=== PATIENT | male | born 1940 | race Caucasian/White ===

== ENCOUNTER → 2017-10-13 09:10 | Outpatient (CLI) | payer MEDICARE, OTHER, SELFPAY ==
[2017-10-13 10:23] LABS: AST(SGOT) 18 U/L (15-37); Alanine Aminotransfer ALT/SGPT 29 U/L (16-61); Albumin, Serum 3.5 g/dL (3.2-5.0); Alkaline Phosphatase 94 U/L (45-117); Bilirubin, Direct 0.16 mg/dL (0.00-0.30); Cholesterol 116 mg/dL (200); Globulin 3.5 g/dL (2.2-4.2); High Density Lipoprotein 44 mg/dL; Triglycerides 90 mg/dL; Very Low Density Lipoprotein 18 mg/dL (5-40)
== END ==
PROVIDERS: Family Provider Family Medicine; PCP Family Medicine; Visit Provider Internal Medicine Cardiovascular Disease
DX: I25.10 Atherosclerotic heart disease of native coronary artery without angina pectoris (principal); E66.9 Obesity, unspecified; E78.5 Hyperlipidemia, unspecified; Z95.5 Presence of coronary angioplasty implant and graft; I10 Essential (primary) hypertension
CPT/HCPCS: 36415; 80061; 80076

== ENCOUNTER → 2017-11-03 13:02 | Outpatient (CLI) | payer MEDICARE, OTHER, SELFPAY ==
--- NOTE | 2017-11-03 13:03 | ECHOCS_ITS ---
Reason For Study: CAD/ASHD Procedure This was a 2D Doppler, Color Flow transthoracic echocardiogram. The study was technically difficult. The study was technically limited. Due to body habitus. Contrast injection was performed. Exam performed in department. Left Ventricle Normal size and thickness. The estimated ejection fraction is 55 %. Septal motion consistent with IVCD. Stage 1 diastolic dysfunction. Right Ventricle Normal size and thickness. Normal systolic function. Atria The left atrium is severely enlarged. Mitral Valve The mitral valve is structurally normal. No prolapse or stenosis seen. Tricuspid Valve Normal tricuspid valve. Trivial tricuspid valve insufficiency. Right ventricular systolic pressure estimated to be 33 mmHg. Aortic Valve Trisinus/trileaflet aortic valve. Normal aortic valve. Pulmonic Valve Normal pulmonic valve. Great Vessels Normal aortic root. Normal arch. Normal inferior vena cava. Inferior vena cava collapse with sniff. Pericardium/Pleural No pericardial effusion. Medication 22 gauge I.V. with prn adaptor inserted into right arm. Diluted definity 4.0ml given slow IV push to enhance endocardial definition. MMode/2D Measurements & Calculations LVIDd: 5.5 cm IVSd: 1.0 cm Ao root diam: 3.7 cm LVIDs: 3.9 cm LVPWd: 1.3 cm LA dimension: 4.3 cm FS: 29.4 % LAV(MOD-bp): 116.4 ml LA A4 area: 31.5 cm2 LAV(MOD-bp) Indexed: 50.4 ml/m2 LAV(MOD-sp2): 110.4 ml LAV(MOD-sp4): 123.7 ml Doppler Measurements & Calculations MV E max negrito: 55.8 cm/sec Lat Peak E' Negrito: 8.1 cm/sec Med Peak E' Negrito: 6.2 cm/sec MV A max negrito: 76.9 cm/sec E/E' lat: 6.9 E/E' med: 9.0 MV E/A: 0.73 Ao V2 max: 116.1 cm/sec LV V1 max: 87.9 cm/sec PA V2 max: 102.5 cm/sec Ao max P.5 mmHg LV V1 max P.1 mmHg TR max negrito: 262.1 cm/sec TR max P.5 mmHg Interpretation Summary The estimated ejection fraction is 55 %. The left atrium is severely enlarged. Stage 1 diastolic dysfunction. Right ventricular systolic pressure estimated to be 33 mmHg. The study was technically difficult. There is no comparison study available. Contrast injection was performed. Ordering Physician: Tommy Houser Referring Physician: Tommy Houser Performed By: Minnie Finley RDCS, RVT
== END ==
PROVIDERS: Family Provider Family Medicine; PCP Family Medicine; Visit Provider Internal Medicine Cardiovascular Disease
DX: I44.7 Left bundle-branch block, unspecified (principal)
CPT/HCPCS: 93306; Q9957; A4216; C8929

== ENCOUNTER → 2017-11-10 12:29 | Outpatient (CLI) | payer MEDICARE, OTHER, SELFPAY ==
--- NOTE | 2017-11-10 12:30 | STEWCON_ITS ---
Reason For Study: CAD Stress Results Protocol: Momo Protocol Maximum Predicted HR: 145 bpm Target HR: 123 bpm% Max imum Predicted HR: 81 % DurationHeart Rate Stage (mm:ss) (bpm) BPCom ment Baseline 57 128/72 Definity 5 ML Given Diluted; No Chest Pain Momo Protocol Stage I 3:00 10 9 142/70No Chest Pain; Mild to Moderate Dyspnea Momo Protocol Stage II 1:00 11 7 154/68No Chest Pain; Moderate Dyspnea Recovery 62 126/68 Stress Duration: 4:00 mm:ss Maximum Stress HR: 117 bpmM ETS: 1 Baseline Echocardiogram Findings The estimated ejection fraction is 55 %. Stress Echo Wall motion Data Resting WMIntermediate WMStress WM Resting Wall Motion Wall Motion Stress Septal IVCD abnormality. Posterior-Basal: Mildly hypokinetic. Infero-Basal: Mildly hypokinetic. Interpretation Summary The study was technically difficult. Contrast injection was performed. The estimated ejection fraction is 55 %. Posterior-Basal: Mildly hypokinetic Infero-Basal: Mildly hypokinetic Abnormal, submaximal treadmill echocardiogram. Positive for ischemia by echocardiographic criteria. Patient appeared to develop inferior basal and posterior basal hypokinesis at peak exercise although imaging acquisition was somewhat hampered by poor echo windows requiring Definity agent. Poor exercise capacity for age. Appropriate blood pressure response to exercise. Rare PVCs noted. EKG not interpretable due to baseline left bundle branch block. Test was terminated due to dyspnea. No complications. Ordering Physician: Tommy Houser Referring Physician: Tommy Houser Performed By: Óscar Quan RCS
== END ==
PROVIDERS: Family Provider Family Medicine; PCP Family Medicine; Visit Provider Internal Medicine Cardiovascular Disease
DX: I25.10 Atherosclerotic heart disease of native coronary artery without angina pectoris (principal); E78.5 Hyperlipidemia, unspecified
CPT/HCPCS: 93017; 93350; Q9957; A4216; C8928

== ENCOUNTER → 2017-11-15 11:46 | Outpatient (CLI) | payer MEDICARE, OTHER, SELFPAY ==
--- NOTE | 2017-11-15 11:50 | RAD_ITS ---
STUDY: X-RAY CHEST REASON FOR EXAM: Male, 77 years old. SOB UPON EXERTION. PATIENT IS HAVING A HEART CATH TECHNIQUE: Frontal and lateral views of the chest. COMPARISON: None. FINDINGS: Chronic appearing increased interstitial lung markings. There is no demonstrated pleural abnormality. Enlarged heart size. Normal mediastinum and chen. Normal visualized pulmonary arteries. There is atherosclerotic calcification of the aortic arch with tortuosity. There are diffuse degenerative changes of the visualized thoracic spine. There is degenerative osteoarthritis of the bilateral shoulders. There is no demonstrated abnormality of the visualized soft tissue structures of the upper abdomen. RAD/Chest PA and Lateral IMPRESSION: There are no acute findings. Electronically Signed: Kaleb Guzmán MD at 23:53 EDT , Service support ,
[2017-11-15 13:14] LABS: Hematocrit 43.8 % (40-54); Hemoglobin 14.9 g/dl (13.0-16.5); Mean Corpuscular Hgb 29.7 pg (27.0-32.0); Mean Corpuscular Volume 87.4 fL (80-94); Mean Platelet Vol. 10.7 fl (6.2-12.0); Platelet Count 199 K/mm3 (150-450); RBC Distribution Width CV 13.4 % (11.6-14.6); RBC Distribution Width SD 42.3 fl (35.1-43.9); Red Blood Count 5.01 M/mm3 (4.6-6.2); White Blood Count 6.4 K/mm3 (4.4-11.0)
[2017-11-15 13:15] LABS: Scan Indicated on CBC? Y/N NO
[2017-11-15 13:21] LABS: Prothrombin Time (Protime)PT. 13.2 SECONDS (11.7-14.9)
[2017-11-15 13:22] LABS: Partial Thromboplast Time 29.1 Seconds (24.1-36.2)
[2017-11-15 13:39] LABS: Anion Gap 6 (5-15); BUN 13 mg/dL (7-18); BUN/Creat Ratio 17.4 RATIO (10-20); Calcium,Total 9.2 mg/dL (8.5-10.1); Chloride 103 mmol/L (98-107); Creatinine, Serum 0.75 mg/dL (0.70-1.30); EST Glomerular Filtration Rate 108 mL/min (>60); Est Glom Filt Rate - Afr Amer 131 mL/min (>60); Glucose 106 mg/dL (74-106); Potassium 3.9 mmol/L (3.5-5.1); Sodium Level 141 mmol/L (136-145)
== END ==
PROVIDERS: Family Provider Family Medicine; PCP Family Medicine; Visit Provider Internal Medicine Cardiovascular Disease
DX: I25.10 Atherosclerotic heart disease of native coronary artery without angina pectoris (principal); Z95.5 Presence of coronary angioplasty implant and graft; R94.39 Abnormal result of other cardiovascular function study
CPT/HCPCS: 36415; 71046; 80048; 85027; 85610; 85730

== ENCOUNTER 2017-11-17 06:43 | Day surgery (SDC) | payer MEDICARE, OTHER, SELFPAY ==
[2017-11-16 12:26] VITALS: BMI 37.9
[2017-11-17] VITALS (27 sets, daily range): BP systolic 134–178; BP diastolic 60–81; PULSE 46–56; RESP 11–20; TEMP 36.4–36.8; O2SAT 92–98; BMI 37.8; BMI 37.9
--- NOTE | 2017-11-17 10:16 | EKG12_ITS ---
Test Reason : PCI Blood Pressure : / mmHG Vent. Rate : 048 BPM Atrial Rate : 053 BPM P-R Int : 000 ms QRS Dur : 168 ms QT Int : 494 ms P-R-T Axes : 000 -28 039 degrees QTc Int : 441 ms Sinus bradycardia Left bundle branch block Abnormal ECG Confirmed by MELISSA BANSAL, MAGGI ([id number]), acquisition editor DAYAN BOWEN ([id number]) on 11/24/2017 3:18:34 PM Referred By: Tommy Houser Confirmed By:MAGGI TORRES MD
--- NOTE | 2017-11-17 10:29 | CL.I_ITS ---
Patient Name: NADIA BARBA Study Date: 11/17/2017 Performing: Tommy Houser MD Ht: 68.89 inches 175 cm : 1940 Wt: 257.94 lbs 117 kg Age: 77 Gender: male BSA: 2.3 PROCEDURE(S) PERFORMED EQ69-NKM/COR/LV NK10-MXP W OR WO PTCA, SINGLE CORONARY ARTERY CLINICAL PROFILE AND CO-MORBIDITIES Indications: New Onset Angina <= 2 months, Suspected CAD, Stable Known CAD Heart Failure: None Stress/Imaging Stress Echocardiogram: Yes Result: Positive High Risk Stress Echocardiogram: Posit justin High Risk Angina Classification Anginal Classification w/in 2 Weeks: CCS II CAD Presentations: Unstable angina. 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 Successful PTCA/CHANNING of the mid LAD utilizing multiple balloons, stents and wires, finally utilizing a 2.5 x 16 Promus Synergy, post dilated with a 3.0 x 8 NC balloon. 75%-->20%, initial ruptured NC ball oon prior to stent caused self-limiting dye staining of septal media senior recruiter vs self-contained intra-ramírez cardial perforation, completely resolved after stenting. Pt completely asymptomatic. No residual dy e staining extra cardiac or intra-mural. RECOMMENDATIONS Referred for immediate PCI Management as per referring Hl7 Developer Highly recommend quitting all tobacco products Follow up with primary international marketing intern Risk factor modification ASA Indefinitley Plavix for at least 12 months Routine post interventional care Refer for Outpatient Cardiac Rehab Manual sheath removal per protocol Manual sheath removal. DESCRIPTION OF PROCEDURE The patient arrived to the procedure lab. The risks and benefits of the procedure as well as a full d escription of our services here and lack of surgical backup were fully explained to the patient and/o r their significant other prior to the catheterization. The Timeout was completed, verifying the cary ect patient and procedure. The patient's procedural site was prepped and draped in the usual fashion. Local anesthetic was given subcutaneously to right groin region with Lidocaine 2%. Using a modified Seldinger technique, arterial access was obtained via the right femoral artery, a 4Fr sheath was inse rted. Left Coronary Artery selective angiography was performed in multiple views using a 4 Fr. JL5 c atheter. Right Coronary Artery selective angiography was then performed in multiple views using a 4 F r. 3DRC catheter. Left Ventriculography was performed in MORALES projection using a 4 Fr. Pigtail cathete r. LV to AO pullback pressures were then recordedThe images were reviewed and options discussed. A de cision was then made to proceed with an Intervention, IVUS or other adjunct procedure. Arterial sheath was exchanged for a 6 Fr Sheath. Angiogram performed pre balloon dilatation. ebu 3.75 Guide catheter was inserted and engaged into the LCA. bmw Guide wire was advanced to the LAD. emerge 2.00 x 12 Balloon catheter was advanced across lesion in the LAD, mid. PTCA balloon inflated at 12 a tms for 14 secs. Angiogram performed post balloon dilatation. elunir 3.00 x 17 Drug Eluting stent was advanced across the lesion in the LAD, mid. Drug Eluting stent was removed intact, failed to cross l esion emerge 2.5 x 12 Balloon catheter was advanced across lesion in the LAD, mid. PTCA balloon infla yeimy at 10 atms for 15 secs. PTCA balloon inflated at 12 atms for 23 secs. Angiogram performed post ba lloon dilatation. elunir 3.00 x17 Drug Eluting stent was advanced across the lesion in the LAD, mid. Drug Eluting stent was removed intact, failed to cross lesion synergy 3.00 x 16 Drug Eluting stent wa s advanced across the lesion in the LAD, mid. Drug Eluting stent was removed intact, failed to cross lesion nc emerge 3.00 x 12 Balloon catheter was advanced across lesion in the LAD, mid. PTCA balloon inflated at 10 atms for 11 secs. PTCA balloon inflated at 14 atms for 28 secs. Angiogram performed po st balloon dilatation. synergy 3.00 x 16 Drug Eluting stent was advanced across the lesion in the LAD , mid. Drug Eluting stent was removed intact, failed to cross lesion runthrough Guide wire was insert ed as a ernesto wire elunir 3.00 x 17 Drug Eluting stent was advanced across the lesion in the LAD, mid on runthrough wire Drug Eluting stent was removed intact, failed to cross lesion synergy 3.00 x 16 D rug Eluting stent was advanced across the lesion in the LAD, mid on bmw wire Drug Eluting stent was r emoved intact, failed to cross lesion choice ex support 0.014 x 182 Guide wire was advanced to the LA D. synergy 2.5 x 16 Drug Eluting stent was advanced across the lesion in the LAD, mid. Angiogram perf ormed post stent deployment. nc emerge 3.00 x 8 Balloon catheter was inserted post stent. Angiogram p erformed post balloon dilatation. The arterial sheath was sutured in place and capped CORONARY ANGIOGRAPHY DOMINANCE: Right Dominant LEFT HEART ASSESSMENT Left Ventricular Ejection Fraction: by LV Gram 55 % Normal Left Ventricular systolic function Normal Left Ventricular End Diastolic Pressure Inferior Mid Hypokinesis - Mild LEFT MAIN: Angiographically normal LEFT ANTERIOR DECENDING ARTERY: MID LAD: 75 % Stenosis CIRCUMFLEX ARTERY: Mild luminal irregularities less than 30% RIGHT CORONARY ARTERY: is occluded COLLATERAL FLOW: Collateral flow from Left to Right INTERVENTION INFORMATION LESION SITE: LAD (Mid) Lesion Complexity: High/C, lesion at bifurcation: No, thrombus present: No, lesion length: 16 mm, cul prit lesion: Yes Pre Stenosis: 75 % Pre intervention ROMELIA flow: 3 PROCEDURE: Balloon Angioplasty, Drug Eluting Stent with pre and post dilatation Post Stenosis: 20 % Post intervention ROMELIA flow: 3 Lesion Devices: Malagon .014 BMW Dunlap Straight 190cm Kota Sci EMERGE MR 2.00x12 BALLOON Cardinal Elunir CHANNING RX 3.0x17 Kota Sci EMERGE MR 2.50x12 BALLOON Kota Sci Synergy MR CHANNING 3.00x16 Kota Sci NC EMERGE MR 3.00x12 BALLOON Terumo .014 Runthrough Extra Floppy 180cm straight Kota Sci .014 Choice Xtra Support wire 182cm Kota Sci Synergy MR CHANNING 2.50x16 Kota Sci NC EMERGE MR 3.00x08 BALLOON COMPLICATIONS No Complications PROCEDURE MEDICATIONS Versed 1 mg IV Versed 1 mg IV Oxygen: 2 L/min via nasal cannula Heparin 6000 unit(s) IV 11/17/2017 09:18:14 Heparin 4000 unit(s) IV 11/17/2017 09:41:34 Nitro 200 mcg IC 11/17/2017 09:19:48 SUMMARY OF HEMODYNAMIC DATA Time AIR REST ECG 07:11:59 ECG 07:12:05 ECG 07:12:34 AO 126/66 (89) SA 09:06:51 LV 129/-6, 8 09:13:49 LV 133/-7, 9 09:13:57 LVp 126/-15, 4 09:14:19 AOp 128/56 (82) 09:14:25 Signed By Tommy Houser MD On 11/17/2017 10:28:12 Tommy Houser MD
[2017-11-17 10:58] LABS: Hematocrit 42.6 % (40-54); Hemoglobin 14.2 g/dl (13.0-16.5); Mean Corp Hgb Conc 33.3 g/gl (32-36); Mean Corpuscular Hgb 29.2 pg (27.0-32.0); Mean Corpuscular Volume 87.7 fL (80-94); Mean Platelet Vol. 9.9 fl (6.2-12.0); Platelet Count 177 K/mm3 (150-450); RBC Distribution Width CV 13.5 % (11.6-14.6); RBC Distribution Width SD 43.1 fl (35.1-43.9); Red Blood Count 4.86 M/mm3 (4.6-6.2); White Blood Count 6.8 K/mm3 (4.4-11.0)
[2017-11-17 10:59] LABS: Scan Indicated on CBC? Y/N NO
[2017-11-17] MEDS: 0.9% Normal Saline 1,000 ML 150 ML IV (11:07)
[2017-11-17] MEDS: 0.9% NaCl Peripheral Flush Adult/Peds IV ×2 (11:07→22:09)
[2017-11-17 11:14] LABS: CPK Total, Creatine Kinase 76 U/L (39-308)
[2017-11-17 11:21] LABS: ACT Activated Clotting Time 224 sec (74-137)
[2017-11-17 12:15] LABS: ACT Activated Clotting Time 158 sec (74-137)
--- NOTE | 2017-11-17 14:23 | CRPHASE1 ---
Patient Data/Charges Former Patient:: Phase I [employer] Art[employer] Crewmember:: Tommy Houser Admit Date:: 11/17/17 Phase I Charge:: Level I - Education Risk Factors/Lifestyle Smoking Status: Never smoker Hx Hypertension: Yes Hx Diabetes Mellitus Type 2: Yes - BORDERLINE WATCHES DIET Hx Dyslipidemia: Yes Hx Obesity: Yes Height: 1.75 m Weight:: 116.573 kg BMI: 37.9 Stress: Home/Family ETOH: No Caffeine: No Substance Abuse: No Family History: Family History (Last Reviewed 11/15/17 @ 11:10 by Dee Dee Pratt) Father CAD (coronary artery disease) Past Cardiac Illness: Coronary Artery Disease Phase I Education Given On:: [place], Nutrition, Antiplatelet medication Issues Affecting Care:: None Knowledge of Condition:: Yes Learning Preferences: Verbal Hospital Course Cardiac Cath Date:: 11/17/17 Medical/Surgical History [place]:: No Angina:: No Diabetes Type II:: Yes - BORDERLINE Hypertension:: Yes - ON MEDS Dyslipidemia:: Yes - ON MEDS Arthritis:: Yes - HAD 2 KNEE SUSRGERIES 3 YRS AGO GI:: No GERD:: No Cancer:: No Renal:: No Thyroid:: No Depression:: No Anxiety:: No Orthopedic:: Yes - 3 YRS AGO Discharge/Home/Social Eval Discharge Disposition: Home Marital Status: Patient Lives With::
--- NOTE | 2017-11-17 14:27 | CRPHASE1_ITS ---
Patient Data/Charges Former Patient:: Phase I Senior Grants Officer:: Tommy Houser Admit Date:: 11/17/17 Phase I Charge:: Level I - Education Risk Factors/Lifestyle Smoking Status: Never smoker Hx Hypertension: Yes Hx Diabetes Mellitus Type 2: Yes - BORDERLINE WATCHES DIET Hx Dyslipidemia: Yes Hx Obesity: Yes Height: 1.75 m Weight:: 116.573 kg BMI: 37.9 Stress: Home/Family ETOH: No Caffeine: No Substance Abuse: No Family History: Family History (Last Reviewed 11/15/17 @ 11:10 by Dee Dee Pratt) Father CAD (coronary artery disease) Past Cardiac Illness: Coronary Artery Disease Phase I Education Given On:: [place], Nutrition, Antiplatelet medication Issues Affecting Care:: None Knowledge of Condition:: Yes Learning Preferences: Verbal Hospital Course Cardiac Cath Date:: 11/17/17 Medical/Surgical History [place]:: No Angina:: No Diabetes Type II:: Yes - BORDERLINE Hypertension:: Yes - ON MEDS Dyslipidemia:: Yes - ON MEDS Arthritis:: Yes - HAD 2 KNEE SUSRGERIES 3 YRS AGO GI:: No GERD:: No Cancer:: No Renal:: No Thyroid:: No Depression:: No Anxiety:: No Orthopedic:: Yes - 3 YRS AGO Discharge/Home/Social Eval Discharge Disposition: Home Marital Status: Patient Lives With::
--- NOTE | 2017-11-17 14:29 | CRPH1.INST_ITS ---
General Education CAD and cardiac anatomy and function:: Patient communicates acknowledgment Explanation of diagnoses and procedures:: Patient communicates acknowledgment Sign/Symptoms of OK:: Patient communicates acknowledgment Antiplatelet therapy: Patient communicates acknowledgment Proper use of NTG-SL: Patient communicates acknowledgment Emergency procedures and activation of EMS: Patient communicates acknowledgment Compliance of all prescribed medications: Patient communicates acknowledgment Smoking Patient Nicotine/Smoking Risk Factors Are:: Never smoked Dyslipidemia Recommendations Include:: Lipid profile not available Dyslipidemia Response Code:: Patient communicates acknowledgment Overweight/Obesity Patient Overweight/Obesity Risk Factors Are:: Overweight = 26-29 Recommendations Include:: Weight loss of 5-10%, Reduced calorie diet Overweight/Obesity:: Patient communicates acknowledgment Hypertension Recommendations Include:: Maintain BP <130/85, BP <130/80 if diabetic Hypertension:: Patient communicates acknowledgment Heart Disease Patient Heart Disease Risk Factors Are:: Family history of heart disease < 65 years old, Previous cardiac event Heart Disease Response Code:: Patient communicates acknowledgment Diabetes Patient Diabetes Risk Factors Are:: No documented hx of diabetes Recommendations Include:: Maintain fasting blood sugars 70-110 md/dL Diabetes:: Patient communicates acknowledgment - BORDERLINE Metabolic Syndrome Patient Metabolic Syndrome Risk Factors Are [3 of 5]:: Fasting blood sugar > 100 mg/dL, Waist circumference > 35 [female] or 40 [male], High triglyceride > 150, Hypertension, Low HDL <40 [male] or < 50 [female] Metabolic Syndrome Response Code:: Patient communicates acknowledgment Sedentary Recommendations Include:: Discussed home walking program Sedentary Response Code:: Patient communicates acknowledgment Stress Stress Response Code:: Patient communicates acknowledgment - REQUIRES HELP AT HOME
[2017-11-17] MEDS: Tamsulosin HCl 0.4 MG Capsule PO (16:48)
[2017-11-17 16:55] LABS: Hematocrit 42.6 % (40-54); Hemoglobin 14.4 g/dl (13.0-16.5); Mean Corp Hgb Conc 33.8 g/gl (32-36); Mean Corpuscular Hgb 29.4 pg (27.0-32.0); Mean Corpuscular Volume 86.9 fL (80-94); Mean Platelet Vol. 10.2 fl (6.2-12.0); Platelet Count 176 K/mm3 (150-450); RBC Distribution Width CV 13.4 % (11.6-14.6); RBC Distribution Width SD 42.3 fl (35.1-43.9); White Blood Count 8.5 K/mm3 (4.4-11.0)
[2017-11-17 16:56] LABS: Scan Indicated on CBC? Y/N NO
[2017-11-17 17:08] LABS: CPK Total, Creatine Kinase 58 U/L (39-308)
--- NOTE | 2017-11-17 19:40 | NURSING ---
Up to chair after bedrest complete. Pt. very stiff but did fair moving to the chair with 1 assist. Right groin site remains soft.
[2017-11-17] MEDS: Metoprolol(XL)Succ 25 MG Tablet PO (21:58)
[2017-11-17] MEDS: Isosorbide DN 20 MG Tablet PO (21:59)
[2017-11-17] MEDS: Atorvastatin Calcium 80 MG Tablet PO (21:59)
[2017-11-17 22:34] LABS: Hematocrit 41.6 % (40-54); Hemoglobin 13.7 g/dl (13.0-16.5); Mean Corp Hgb Conc 32.9 g/gl (32-36); Mean Corpuscular Hgb 28.5 pg (27.0-32.0); Mean Corpuscular Volume 86.7 fL (80-94); Platelet Count 166 K/mm3 (150-450); RBC Distribution Width CV 13.4 % (11.6-14.6); RBC Distribution Width SD 42.6 fl (35.1-43.9); Scan Indicated on CBC? Y/N NO; White Blood Count 8.2 K/mm3 (4.4-11.0)
[2017-11-17 23:01] LABS: CPK Total, Creatine Kinase 55 U/L (39-308)
[2017-11-18] VITALS (14 sets, daily range): BP systolic 121–175; BP diastolic 50–71; PULSE 49–60; RESP 12–20; TEMP 36.9–37.1; O2SAT 92–97
[2017-11-18 04:21] LABS: Hematocrit 40.3 % (40-54); Hemoglobin 13.6 g/dl (13.0-16.5); Mean Corp Hgb Conc 33.7 g/gl (32-36); Mean Corpuscular Hgb 29.5 pg (27.0-32.0); Mean Corpuscular Volume 87.4 fL (80-94); Mean Platelet Vol. 9.8 fl (6.2-12.0); Platelet Count 190 K/mm3 (150-450); RBC Distribution Width CV 13.4 % (11.6-14.6); RBC Distribution Width SD 41.9 fl (35.1-43.9); Red Blood Count 4.61 M/mm3 (4.6-6.2)
[2017-11-18 04:24] LABS: Scan Indicated on CBC? Y/N NO
[2017-11-18 04:39] LABS: Anion Gap 9 (5-15); BUN 15 mg/dL (7-18); BUN/Creat Ratio 21.2 RATIO (10-20); Calcium,Total 8.3 mg/dL (8.5-10.1); Chloride 107 mmol/L (98-107); Cholesterol 113 mg/dL (200); Creatinine, Serum 0.71 mg/dL (0.70-1.30); EST Glomerular Filtration Rate 116 mL/min (>60); Est Glom Filt Rate - Afr Amer 140 mL/min (>60); Estimated Creatinine Clearance 63.83 ml/min; Glucose 106 mg/dL (74-106); High Density Lipoprotein 37 mg/dL; Potassium 3.7 mmol/L (3.5-5.1); Sodium Level 144 mmol/L (136-145); Triglycerides 121 mg/dL; Very Low Density Lipoprotein 24 mg/dL (5-40)
--- NOTE | 2017-11-18 05:55 | EKG12_ITS ---
Test Reason : AM Blood Pressure : / mmHG Vent. Rate : 055 BPM Atrial Rate : 055 BPM P-R Int : 268 ms QRS Dur : 158 ms QT Int : 472 ms P-R-T Axes : 035 -20 050 degrees QTc Int : 451 ms Sinus bradycardia with 1st degree A-V block Left bundle branch block Abnormal ECG Confirmed by MELISSA BANSAL, MAGGI ([id number]), television news video editor DAYAN BOWEN ([id number]) on 11/24/2017 3:18:05 PM Referred By: Tommy Houser Confirmed By:MAGGI TORRES MD
--- NOTE | 2017-11-18 07:55 | PCM.DC.CCA ---
Discharge Diet: Low fat/ Low Cholesterol Discharge Activity: - - Don not lift anything greater than 10 lbs for 3 days May shower in (days): 1 May resume sexual activity in: 1 week - if no groin problems occur. Lifting Restrictions: 10 pounds and also avoid any pushing or pulling for 3 days after your test. Call your doctor if your incision/area has: Continuous Slow Oozing, Sudden Increased Bleeding, Increased Pain/ Swelling, Increased Redness, Foul Smelling Discharge, Swelling at the incision site Call your doctor if you observe: Fever of 101 or Higher, Shortness of breath, Chest pain Change Dressing in (Days):: 1 Remove Dressing in (days):: 1 Cleanse incision/area with: Soap & Water Additional Dressing/Incision Instructions:: Keep the dressing (bandage) on until the next morning. You may then shower, but do not take a tub bath for 5 days after your test. It is normal to have some tenderness and discomfort at the puncture site. Sometimes bruising also occurs. However, if pain, numbness, or coldness occurs below the puncture site (in your leg, toes, arms or fingers) call your doctor at once. You may have a small, marble sized knot at the puncture site. This is normal. Do not rub it. It will go away in 4-6 weeks. Bleeding can occur from the area where the puncture was done. Blood may spurt or drip from the site. If blood spurts, apply pressure right away to stop bleeding and call 911. Although rare, bleeding into the tissue (hematoma) can also occur. If this happens, a large, firm area goose egg under the skin will appear. If any of these occur, lie down as flat as you can and have someone apply firm pressure to the cath site with a gauze pad or a clean washcloth for 10-15 minutes. Call 911 or go to the Emergency Department. Additional Instructions: You may start cardiac rehab after we see you in the office. You can not stop you Plavix for at least one year. You will be on ASA for life long use. Allergies/Adverse Reactions: Allergies clindamycin Allergy (Verified 11/15/17 11:10) swelling Penicillins Allergy (Verified 11/15/17 11:10) Rash THROAT SWELLS lisinopril Adverse Reaction (Verified 11/15/17 11:10) Nausea Medications to take at Discharge Ascorbic Acid [Vitamin C] 500 mg PO DAILY@0800 11/01/13 Finasteride [Proscar] 5 mg PO DAILY 11/01/13 Multivitamins,Therapeutic [Multivitamin] 1 tab PO DAILY 11/01/13 cyclobenzaprine 10 mg tablet 10 mg PO Q8H PRN 10/11/17 fluticasone 50 mcg/actuation nasal spray,suspension 1 spray INTRANASAL QDAY 10/11/17 tamsulosin 0.4 mg capsule 0.4 mg PO QDAY 10/11/17 atorvastatin 80 mg tablet 80 mg PO QHS #90 tab 10/12/17 diltiazem ER 240 mg capsule,24 hr,extended release 240 mg PO DAILY #90 cap 10/12/17 hydrochlorothiazide 25 mg tablet 25 mg PO DAILY #90 tab 10/12/17 isosorbide dinitrate 20 mg tablet 20 mg PO BID #180 tab 10/12/17 losartan 100 mg tablet 100 mg PO DAILY #90 tab 10/12/17 metoprolol succinate ER 25 mg tablet,extended release 24 hr 25 mg PO BID #180 tab 10/12/17 nitroglycerin 0.4 mg sublingual tablet 0.4 mg SUBLINGUAL Q5-15M PRN #25 tab 10/12/17 aspirin 81 mg tablet,delayed release 81 mg PO QDAY #30 tab 11/11/17 clopidogrel 75 mg tablet 75 mg PO QDAY #30 tab 11/11/17 Primary Care Physician: Sen Orr MD [Primary Care Provider] - Please Follow Up With: Tommy Houser MD When: 12/02 at 2:30pm Cardiac Rehabilitation Info Cardiac Rehabilitation Program Information: Cardiac Rehabilitation is important for patients like you who are recovering from a heart problem. Cardiac rehabilitation programs are recognized as integral to the continued care of the patient with coronary heart disease. The cardiac rehabilitation program is designed to optimize a patient's physical, psychological, and social functioning. Health patient care specialist work in cardiac rehabilitation programs and assist you with getting the treatments you need to get stronger and healthier - like exercise, healthy eating habits, and medications. Cardiac rehabilitation has been show to help people with heart problems live longer and have better life enjoyment than people who do not go to cardiac rehabilitation. Please contact the Cardiac Rehabilitation Program at [facility] at in two weeks if you have not heard from them.
--- NOTE | 2017-11-18 08:03 | DCINST_ITS ---
Discharge Diet: Low fat/ Low Cholesterol Discharge Activity: - - Don not lift anything greater than 10 lbs for 3 days May shower in (days): 1 May resume sexual activity in: 1 week - if no groin problems occur. Lifting Restrictions: 10 pounds and also avoid any pushing or pulling for 3 days after your test. Call your doctor if your incision/area has: Continuous Slow Oozing, Sudden Increased Bleeding, Increased Pain/ Swelling, Increased Redness, Foul Smelling Discharge, Swelling at the incision site Call your doctor if you observe: Fever of 101 or Higher, Shortness of breath, Chest pain Change Dressing in (Days):: 1 Remove Dressing in (days):: 1 Cleanse incision/area with: Soap & Water Additional Dressing/Incision Instructions:: Keep the dressing (bandage) on until the next morning. You may then shower, but do not take a tub bath for 5 days after your test. It is normal to have some tenderness and discomfort at the puncture site. Sometimes bruising also occurs. However, if pain, numbness, or coldness occurs below the puncture site (in your leg, toes, arms or fingers) call your doctor at once. You may have a small, marble sized knot at the puncture site. This is normal. Do not rub it. It will go away in 4-6 weeks. Bleeding can occur from the area where the puncture was done. Blood may spurt or drip from the site. If blood spurts, apply pressure right away to stop bleeding and call 911. Although rare, bleeding into the tissue (hematoma) can also occur. If this happens, a large, firm area goose egg under the skin will appear. If any of these occur, lie down as flat as you can and have someone apply firm pressure to the cath site with a gauze pad or a clean washcloth for 10-15 minutes. Call 911 or go to the Emergency Department. Additional Instructions: You may start cardiac rehab after we see you in the office. You can not stop you Plavix for at least one year. You will be on ASA for life long use. Allergies/Adverse Reactions: Allergies clindamycin Allergy (Verified 11/15/17 11:10) swelling Penicillins Allergy (Verified 11/15/17 11:10) Rash THROAT SWELLS lisinopril Adverse Reaction (Verified 11/15/17 11:10) Nausea Medications to take at Discharge Ascorbic Acid [Vitamin C] 500 mg PO DAILY@0800 11/01/13 Finasteride [Proscar] 5 mg PO DAILY 11/01/13 Multivitamins,Therapeutic [Multivitamin] 1 tab PO DAILY 11/01/13 cyclobenzaprine 10 mg tablet 10 mg PO Q8H PRN 10/11/17 fluticasone 50 mcg/actuation nasal spray,suspension 1 spray INTRANASAL QDAY tamsulosin 0.4 mg capsule 0.4 mg PO QDAY 10/11/17 atorvastatin 80 mg tablet 80 mg PO QHS #90 tab 10/12/17 diltiazem ER 240 mg capsule,24 hr,extended release 240 mg PO DAILY #90 cap 10/12 hydrochlorothiazide 25 mg tablet 25 mg PO DAILY #90 tab 10/12/17 isosorbide dinitrate 20 mg tablet 20 mg PO BID #180 tab 10/12/17 losartan 100 mg tablet 100 mg PO DAILY #90 tab 10/12/17 metoprolol succinate ER 25 mg tablet,extended release 24 hr 25 mg PO BID #180 tab 10/12/17 nitroglycerin 0.4 mg sublingual tablet 0.4 mg SUBLINGUAL Q5-15M PRN #25 tab aspirin 81 mg tablet,delayed release 81 mg PO QDAY #30 tab 11/11/17 clopidogrel 75 mg tablet 75 mg PO QDAY #30 tab 11/11/17 Primary Care Physician: Sen Orr MD [Primary Care Provider] - Please Follow Up With: Tommy Houser MD When: 12/02 at 2:30pm Cardiac Rehabilitation Info Cardiac Rehabilitation Program Information: Cardiac Rehabilitation is important for patients like you who are recovering from a heart problem. Cardiac rehabilitation programs are recognized as integral to the continued care of the patient with coronary heart disease. The cardiac rehabilitation program is designed to optimize a patient's physical, psychological, and social functioning. Health healthcare sales representative work in cardiac rehabilitation programs and assist you with getting the treatments you need to get stronger and healthier - like exercise, healthy eating habits, and medications. Cardiac rehabilitation has been show to help people with heart problems live longer and have better life enjoyment than people who do not go to cardiac rehabilitation. Please contact the Cardiac Rehabilitation Program at [facility] at in two weeks if you have not heard from them.
[2017-11-18] MEDS: Metoprolol(XL)Succ 25 MG Tablet PO (08:06)
[2017-11-18] MEDS: Isosorbide DN 20 MG Tablet PO (08:06)
[2017-11-18] MEDS: Multivitamins,Therapeutic Tablet 1 TABLET PO (08:06)
[2017-11-18] MEDS: Ascorbic Acid 500 MG Tablet PO (08:07)
[2017-11-18] MEDS: hydroCHLOROthiazide 25 MG Tablet PO (08:07)
[2017-11-18] MEDS: Losartan Potassium 100 MG Tablet PO (08:08)
--- NOTE | 2017-11-18 09:15 | PN.CARD_ITS ---
Subjectve: Patient doing very well overnight, no chest pain, angina, shortness of breath or dyspnea. Right groin is clean/dry/intact. CKs are negative. Hemoglobin and creatinine are within nominal limits. EKG shows normal sinus rhythm, no acute changes. Objective: Vital Signs Temp Pulse Resp BP Pulse Ox 98.5 F 60 17 175/70 H 97 11/18/17 04:00 11/18/17 08:06 11/18/17 08:00 11/18/17 08:06 11/18/17 08:00 Oxygen Delivery Method Room Air Weight: 230 lb 13.184 oz Body Mass Index (BMI) 37.8 Intake and Output for Last 24 Hours 11/16/17 11/17/17 11/18/17 23:59 23:59 23:59 Intake Total 2080 / 2080 100 / 100 Output Total 1450 / 1450 200 / 200 Balance 630 / 630 -100 / -100 General: Awake, Alert, Oriented x 3 HEENT: PERRL, EOMI, Sclera Non Icteric Neck: Supple, Good ROM, No Lymph Node Enlargement Lungs: Clear to auscultation Cardiovascular: Regular Rhythm, Normal S1, Normal S2, No Murmurs, No Rubs, No Gallops Vascular: No Carotid Bruits, Normal Femoral Pulses, Normal Radial Pulses, Normal Dorsalis Pedal Pulse, Normal Posterior Tibial Pulses Abdomen: Bowel Sounds Present, Soft, Non Tender, No HSM, No Organomegaly Extremities: No Cyanosis, No Clubbing, No edema Neurological: No Focal Motor or Sensory Deficit 11/17/17 10:40: WBC 6.8, RBC 4.86, Hgb 14.2, Hct 42.6, MCV 87.7, MCH 29.2, MCHC 33.3, RDW 13.5, RDW Differential 43.1, Plt Count 177, MPV 9.9 11/17/17 16:35: WBC 8.5, RBC 4.90, Hgb 14.4, Hct 42.6, MCV 86.9, MCH 29.4, MCHC 33.8, RDW 13.4, RDW Differential 42.3, Plt Count 176, MPV 10.2 11/17/17 22:15: WBC 8.2, RBC 4.80, Hgb 13.7, Hct 41.6, MCV 86.7, MCH 28.5, MCHC 32.9, RDW 13.4, RDW Differential 42.6, Plt Count 166, MPV 10.0 11/18/17 04:15: Sodium 144, Potassium 3.7, Chloride 107, Carbon Dioxide 28.0, Anion Gap 9, BUN 15, Creatinine 0.71, Est GFR (MDRD) Af Amer 140, Est GFR (MDRD ) Non-Af 116, BUN/Creatinine Ratio 21.2 H, Glucose 106, Calcium 8.3 L, Triglycerides 121, Cholesterol 113, LDL Cholesterol 52, VLDL Cholesterol 24, HDL Cholesterol 37 L 11/18/17 04:15: WBC 9.0, RBC 4.61, Hgb 13.6, Hct 40.3, MCV 87.4, MCH 29.5, MCHC 33.7, RDW 13.4, RDW Differential 41.9, Plt Count 190, MPV 9.8 Rhythm: EKG: ECHO: Stress Test: Cardiac Cath: PCI: CT Surgery: Holter monitor: EPS: PPM: CXR: Chest CT Scan: Medical Necessity - Tobacco Use Smoking Status: Never smoker Assessment/Plan 1. Coronary artery disease: Patient has had no chest pain symptoms overnight. CKs are negative. EKG is unchanged. Telemetry showed normal sinus rhythm, no PVCs. Hemoglobin and creatinine are within nominal limits. At this point I would recommend continuing baby aspirin and Plavix for life given the patient's calcified mid LAD stenosis requiring drug-eluting stent. 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 In addition we will restart his antihypertensive medications today, and adjust them upwards to maintain and optimize blood pressure. He will return in 2 weeks time to our office for a groin check and blood pressure check. He will then be enrolled in cardiac rehab at which time we can adjust his antihypertensive medications as well. 2. Hyperlipidemia: Continue statin based medication. 3. Discharge home today. Follow-up with Dr. Houser. Code Visit Inpatient E&M: 45321 Subs Hosp L2
[2017-11-18] MEDS: Aspirin E.C. 81 MG Tablet PO (09:31)
[2017-11-18] MEDS: Tamsulosin HCl 0.4 MG Capsule PO (09:31)
[2017-11-18] MEDS: dilTIAZem CD 240 MG Capsule PO (09:32)
[2017-11-18] MEDS: Finasteride 5 MG Tablet PO (09:32)
[2017-11-18] MEDS: Clopidogrel Bisulfate 75 MG Tablet PO (09:32)
== END 2017-11-18 11:00 | disposition home or self-care (01) ==
LOC: CLSP 06:44 → ICU 09:57
PROVIDERS: Family Provider Family Medicine; PCP Family Medicine; Visit Provider Internal Medicine Cardiovascular Disease
DX: I25.10 Atherosclerotic heart disease of native coronary artery without angina pectoris (principal); R94.39 Abnormal result of other cardiovascular function study; E78.00 Pure hypercholesterolemia, unspecified; I10 Essential (primary) hypertension; I44.7 Left bundle-branch block, unspecified; E66.9 Obesity, unspecified; Z68.37 Body mass index [BMI] 37.0-37.9, adult; N40.0 Benign prostatic hyperplasia without lower urinary tract symptoms; M54.16 Radiculopathy, lumbar region; G47.30 Sleep apnea, unspecified; E11.9 Type 2 diabetes mellitus without complications; Z98.61 Coronary angioplasty status; Z96.653 Presence of artificial knee joint, bilateral; Z79.82 Long term (current) use of aspirin; Z79.899 Other long term (current) drug therapy
CPT/HCPCS: 80048; 80061; 82550; 85027; 85347; 92928; 93005; 93458; 99152; 99153; J7030; J7040; Q9967; A4216; C1725; C1769; C1874; C1887; C1894; C9600

== ENCOUNTER → 2019-01-30 | Outpatient (CLI) | payer MEDICARE, OTHER, SELFPAY ==
[2018-07-22 10:28] VITALS: BMI 37.9
[2019-01-19 13:13] VITALS: BMI 37.5
[2019-01-30 12:09] LABS: AST(SGOT) 14 U/L (15-37); Alanine Aminotransfer ALT/SGPT 22 U/L (16-61); Albumin, Serum 3.4 g/dL (3.2-5.0); Alkaline Phosphatase 92 U/L (45-117); Bilirubin, Direct 0.15 mg/dL (0.00-0.30); Cholesterol 115 mg/dL (200); Globulin 3.6 g/dL (2.2-4.2); High Density Lipoprotein 41 mg/dL; Triglycerides 101 mg/dL; Very Low Density Lipoprotein 20 mg/dL (5-40)
== END | disposition home or self-care (01) ==
PROVIDERS: Family Provider Family Medicine; PCP Family Medicine; Referring Provider Internal Medicine Cardiovascular Disease; Visit Provider Internal Medicine Cardiovascular Disease
DX: E78.5 Hyperlipidemia, unspecified (principal); I25.10 Atherosclerotic heart disease of native coronary artery without angina pectoris
CPT/HCPCS: 36415; 80061; 80076

== ENCOUNTER 2019-03-06 06:41 | Day surgery (SDC) | payer MEDICARE, OTHER, SELFPAY ==
[2018-07-22 10:28] VITALS: BMI 37.9
[2019-01-19 13:13] VITALS: BMI 37.5
--- NOTE | 2019-02-20 03:19 | HP_ITS ---
Intake Vital Signs 02/20/19 Body Mass Index (BMI) 37.5 02/20/19 Height 5 ft 9 in 02/20/19 Weight: 254 lb 3 oz 02/20/19 Body Mass Index (BMI) 37.5 02/20/19 Blood Pressure 135/69 H 02/20/19 Blood Pressure Location Rt brachial 02/20/19 Blood Pressure Position Sitting 02/20/19 Respiratory Rate 20 H 02/20/19 Pulse Rate 71 02/20/19 Pulse Ox 99 Intake Visit Reasons: update H&P, go over instructions for cscope Chief Complaint: Updated H and P c-scope DP Branch Operations Coordinator Required: No Is patient in pain?: No Allergies clindamycin Allergy (Verified 02/20/19 13:02) swelling Penicillins Allergy (Verified 02/20/19 13:02) Rash lisinopril Adverse Reaction (Verified 02/20/19 13:02) Nausea Medications Finasteride [Proscar] 5 mg PO DAILY 11/01/13 [History Confirmed 02/20/19] Multivitamins,Therapeutic [Multivitamin] 1 tab PO DAILY 11/01/13 [History Confirmed 02/20/19] cyclobenzaprine 10 mg tablet 10 mg PO Q8H PRN 10/11/17 [History Confirmed 02/20/19] fluticasone propionate 50 mcg/actuation nasal spray,suspension 1 spray INTRANASAL QDAY 10/11/17 [History Confirmed 02/20/19] tamsulosin 0.4 mg capsule 0.4 mg PO QDAY 10/11/17 [History Confirmed 02/20/19] atorvastatin 80 mg tablet 80 mg PO QHS #90 tab 10/12/17 [Rx Confirmed 02/20/19] diltiazem ER 240 mg capsule,24 hr,extended release 240 mg PO DAILY #90 cap 10/12/17 [Rx Confirmed 02/20/19] hydrochlorothiazide 25 mg tablet 25 mg PO DAILY #90 tab 10/12/17 [Rx Confirmed 02/20/19] isosorbide dinitrate 20 mg tablet 20 mg PO BID #180 tab 10/12/17 [Rx Confirmed 02/20/19] losartan 100 mg tablet 100 mg PO DAILY #90 tab 10/12/17 [Rx Confirmed 02/20/19] metoprolol succinate ER 25 mg tablet,extended release 24 hr 25 mg PO BID #180 tab 10/12/17 [Rx Confirmed 02/20/19] nitroglycerin 0.4 mg sublingual tablet 0.4 mg SUBLINGUAL Q5-15M PRN #25 tab 10/12/17 [Rx Confirmed 02/20/19] clopidogrel 75 mg tablet 75 mg PO QDAY #30 tab 06/07/18 [Rx Confirmed 02/20/19] aspirin 81 mg tablet,delayed release 81 mg PO QDAY #30 tab 10/14/18 [Rx Confirmed 02/20/19] metformin 500 mg tablet 500 mg PO DAILY tab 01/19/19 [History Confirmed 02/20/19] [facility] Medical History Obstructive sleep apnea (Chronic) Type 2 diabetes mellitus without complications (Chronic) Left bundle branch block (Chronic) Obesity (Chronic) Atherosclerosis of coronary artery of [place] heart without angina pectoris (Chronic) Hypertension (Chronic) Hyperlipemia (Chronic) BPH (benign prostatic hyperplasia) (Chronic) Lumbar radiculopathy (Chronic) Abnormal stress echo (Resolved) Surgical History History of coronary artery stent placement (Chronic 11/17/17) History of coronary angioplasty (Chronic ~11/1995) History of total left knee replacement (TKR) (Chronic ~2013) History of total right knee replacement (TKR) (Chronic ~2014) History of umbilical hernia repair (Chronic) Family History Father CAD (coronary artery disease) Social History (Updated 02/20/19 @ 15:19 by Anita Hamilton PA-C) Smoking Status: Never smoker Smokeless tobacco user: chewing tobacco alcohol intake: never HPI HPI HPI: NADIA BARBA, is a 78 M who presents to the office today for HPI HPI Surgical H&P: Yes HPI: NADIA BARBA, is a 78 M who presents to the office today for an update history and physical. Patient denies recent hospitalizations or illnesses since his last office visit. He notes having a stent placed last year. He is currently on Plavix and aspirin. Patient's previous history per Dr. Burgos: NADIA BARBA, is a 78 M who presents to the office today for for evaluation for colonoscopy. Patient had his last colonoscopy in July 2015. He was noted to have polyps at that time he is here today for his repeat colonoscopy. Patient states that he has been moving his bowels appropriately. He has not noticed any blood. His weight is been stable. The patient has had a cardiac stent placed in . Last saw his Dr. Houser on May 2018 and he is currently on Plavix. ROS General General: No weight change, appetite, fatigue, colon cancer, breast cancer or weakness HEENT HEENT: No difficulty swallowing, eye injury, eye surgery, swollen glands or hoarseness Endo Endocrine: Yes diabetes mellitus; no thyroid disease, thyroid cancer, Hair loss, heat intolerance or cold intolerance Skin Skin: No rash or changing moles Breast Breast: No left breast lump, right breast lump, nipple discharge, breast pain, abnormal mammogram, abnormal US or breast enlargement Musc Musculoskeletal: No back problems, arthritis, rheumatoid arthritis, gout or joint pain Cardio Cardiovascular: Yes high blood pressure and heart stent; no murmur, pacemaker, heart disease, atrial fibrillation, heart attack, palpitations, shortness of breat with exertion or chest pain Psych Psychiatric: No depression, anxiety or hearing voices Resp Respiratory: No shortness of breath, No sleep apnea, No cough, No COPD, No asthma, No emphysema, No wheezing Gastro Gastrointestinal: No abdominal pain, No nausea or vomiting, No diarrhea, No constipation, No blood in stool, No acid reflux, No hemorrhoids, No ulcers, No gallbladder problem, No black,tarry stools Sergey Hematologic: No blood thinners, No blood disorders, No bleeding, No anemia, No blood clots Neuro Neurologic: No weakness Exam Const General: cooperative, healthy appearing, comfortable, no acute distress [facility] Head: normal to inspection Eyes General: appearance normal, both eyes and all related structures Neck Neck: normal visual inspection Neck mass: No Chest Breast Palpation: No nipple discharge Resp Effort & Inspection: normal respiratory effort Auscultation: clear to auscultation bilaterally Cardio Rate: regular rate Rhythm: regular rhythm Heart Sounds: no murmurs GI Inspection: normal to inspection Palpation: soft Auscultation: normal bowel sounds Skin General: no rashes or lesions noted Neuro General: no focal motor deficits, CN's II-XI intact bilaterally Extrem General: normal to inspection Psych Appearance: grossly normal Affect: normal affect Assessment & Plan Problems 1. Personal history of colonic polyps Z86.[address] Burgos will plan to perform a colonoscopy with possible biopsies. Procedure details, risks and benefits have been explained. Patient will hold Plavix for 5 days prior to the procedure. Coding Level of Care Code No Charge Diagnoses Personal history of colonic polyps Z86.010 Comment Update H&P 02/20/19 1519 <Electronically signed by Anita nguyen PA-C> Date _ Anita Hamilton PA-C
[2019-02-20 13:02] VITALS: BMI 37.5
[2019-03-06 07:23] VITALS: BP 133/66; PULSE 51; RESP 16; TEMP 36.4; O2SAT 98; BMI 36.5
[2019-03-06] MEDS: Lactated Ringers 1,000 ML 100 ML IV (07:40)
[2019-03-06 07:46] LABS: Bedside Glucose 130 mg/dL (70-110)
--- NOTE | 2019-03-06 08:03 | PCM.HP.BLA ---
History and Physical Date of Admission: 03/06/19 [facility] [address] [place] [address] OFFICE VISIT Date of Service: 02/20/19 MR#: [id number] Acct: [id number] Name: NADIA BARBA Rep #: [id number] : 1940 Provider: Anita Hamilton PA-C Age/Sex: 78/M Location: [facility] Status: Signed Intake Vital Signs 02/20/19 Body Mass Index (BMI) 37.5 02/20/19 Height 5 ft 9 in 02/20/19 Weight: 254 lb 3 oz 02/20/19 Body Mass Index (BMI) 37.5 02/20/19 Blood Pressure 135/69 H 02/20/19 Blood Pressure Location Rt brachial 02/20/19 Blood Pressure Position Sitting 02/20/19 Respiratory Rate 20 H 02/20/19 Pulse Rate 71 02/20/19 Pulse Ox 99 Intake Visit Reasons: update H&P, go over instructions for cscope Chief Complaint: Updated H and P c-scope DP Physical Anthropologist Required: No Is patient in pain?: No Allergies clindamycin Allergy (Verified 02/20/19 13:02) swelling Penicillins Allergy (Verified 02/20/19 13:02) Rash lisinopril Adverse Reaction (Verified 02/20/19 13:02) Nausea Medications Finasteride [Proscar] 5 mg PO DAILY 11/01/13 [History Confirmed 02/20/19] Multivitamins,Therapeutic [Multivitamin] 1 tab PO DAILY 11/01/13 [History Confirmed 02/20/19] cyclobenzaprine 10 mg tablet 10 mg PO Q8H PRN 10/11/17 [History Confirmed 02/20/19] fluticasone propionate 50 mcg/actuation nasal spray,suspension 1 spray INTRANASAL QDAY 10/11/17 [History Confirmed 02/20/19] tamsulosin 0.4 mg capsule 0.4 mg PO QDAY 10/11/17 [History Confirmed 02/20/19] atorvastatin 80 mg tablet 80 mg PO QHS #90 tab 10/12/17 [Rx Confirmed 02/20/19] diltiazem ER 240 mg capsule,24 hr,extended release 240 mg PO DAILY #90 cap 10/12/17 [Rx Confirmed 02/20/19] hydrochlorothiazide 25 mg tablet 25 mg PO DAILY #90 tab 10/12/17 [Rx Confirmed 02/20/19] isosorbide dinitrate 20 mg tablet 20 mg PO BID #180 tab 10/12/17 [Rx Confirmed 02/20/19] losartan 100 mg tablet 100 mg PO DAILY #90 tab 10/12/17 [Rx Confirmed 02/20/19] metoprolol succinate ER 25 mg tablet,extended release 24 hr 25 mg PO BID #180 tab 10/12/17 [Rx Confirmed 02/20/19] nitroglycerin 0.4 mg sublingual tablet 0.4 mg SUBLINGUAL Q5-15M PRN #25 tab 10/12/17 [Rx Confirmed 02/20/19] clopidogrel 75 mg tablet 75 mg PO QDAY #30 tab 06/07/18 [Rx Confirmed 02/20/19] aspirin 81 mg tablet,delayed release 81 mg PO QDAY #30 tab 10/14/18 [Rx Confirmed 02/20/19] metformin 500 mg tablet 500 mg PO DAILY tab 01/19/19 [History Confirmed 02/20/19] [facility] Medical History Obstructive sleep apnea (Chronic) Type 2 diabetes mellitus without complications (Chronic) Left bundle branch block (Chronic) Obesity (Chronic) Atherosclerosis of coronary artery of [place] heart without angina pectoris (Chronic) Hypertension (Chronic) Hyperlipemia (Chronic) BPH (benign prostatic hyperplasia) (Chronic) Lumbar radiculopathy (Chronic) Abnormal stress echo (Resolved) Surgical History History of coronary artery stent placement (Chronic 11/17/17) History of coronary angioplasty (Chronic ~11/1995) History of total left knee replacement (TKR) (Chronic ~2013) History of total right knee replacement (TKR) (Chronic ~2014) History of umbilical hernia repair (Chronic) Family History Father CAD (coronary artery disease) Social History (Updated 02/20/19 @ 15:19 by Anita Hamilton PA-C) Smoking Status: Never smoker Smokeless tobacco user: chewing tobacco alcohol intake: never HPI HPI HPI: NADIA BARBA, is a 78 M who presents to the office today for HPI HPI Surgical H&P: Yes HPI: NADIA BARBA, is a 78 M who presents to the office today for an update history and physical. Patient denies recent hospitalizations or illnesses since his last office visit. He notes having a stent placed last year. He is currently on Plavix and aspirin. Patient's previous history per Dr. Burgos: NDAIA BARBA, is a 78 M who presents to the office today for for evaluation for colonoscopy. Patient had his last colonoscopy in July 2015. He was noted to have polyps at that time he is here today for his repeat colonoscopy. Patient states that he has been moving his bowels appropriately. He has not noticed any blood. His weight is been stable. The patient has had a cardiac stent placed in . Last saw his Dr. Houser on May 2018 and he is currently on Plavix. ROS General General: No weight change, appetite, fatigue, colon cancer, breast cancer or weakness HEENT HEENT: No difficulty swallowing, eye injury, eye surgery, swollen glands or hoarseness Endo Endocrine: Yes diabetes mellitus; no thyroid disease, thyroid cancer, Hair loss, heat intolerance or cold intolerance Skin Skin: No rash or changing moles Breast Breast: No left breast lump, right breast lump, nipple discharge, breast pain, abnormal mammogram, abnormal US or breast enlargement Musc Musculoskeletal: No back problems, arthritis, rheumatoid arthritis, gout or joint pain Cardio Cardiovascular: Yes high blood pressure and heart stent; no murmur, pacemaker, heart disease, atrial fibrillation, heart attack, palpitations, shortness of breat with exertion or chest pain Psych Psychiatric: No depression, anxiety or hearing voices Resp Respiratory: No shortness of breath, No sleep apnea, No cough, No COPD, No asthma, No emphysema, No wheezing Gastro Gastrointestinal: No abdominal pain, No nausea or vomiting, No diarrhea, No constipation, No blood in stool, No acid reflux, No hemorrhoids, No ulcers, No gallbladder problem, No black,tarry stools Sergey Hematologic: No blood thinners, No blood disorders, No bleeding, No anemia, No blood clots Neuro Neurologic: No weakness Exam Const General: cooperative, healthy appearing, comfortable, no acute distress HENOR Head: normal to inspection Eyes General: appearance normal, both eyes and all related structures Neck Neck: normal visual inspection Neck mass: No Chest Breast Palpation: No nipple discharge Resp Effort & Inspection: normal respiratory effort Auscultation: clear to auscultation bilaterally Cardio Rate: regular rate Rhythm: regular rhythm Heart Sounds: no murmurs GI Inspection: normal to inspection Palpation: soft Auscultation: normal bowel sounds Skin General: no rashes or lesions noted Neuro General: no focal motor deficits, CN's II-XI intact bilaterally Extrem General: normal to inspection Psych Appearance: grossly normal Affect: normal affect Assessment & Plan Problems 1. Personal history of colonic polyps Z86.[address] Burgos will plan to perform a colonoscopy with possible biopsies. Procedure details, risks and benefits have been explained. Patient will hold Plavix for 5 days prior to the procedure. Coding Level of Care Code No Charge Diagnoses Personal history of colonic polyps Z86.010 Comment Update H&P 02/20/19 1519 <Electronically signed by Anita Hamilton PA-C> Date Anita Hamilton PA-C Cosigner Signature: Date (if applicable) CC: ~ I have re-examined the patient. There are no clinical changes since date of exam.
[2019-03-06 08:36] VITALS: BP 130/75; BP 133/66; PULSE 52; RESP 14; TEMP 36.5; O2SAT 94
[2019-03-06 08:40] VITALS: BP 133/66; BP 135/72; PULSE 52; RESP 16; O2SAT 94
--- NOTE | 2019-03-06 08:42 | OP.ENDO_ITS ---
03/06/2019 Sen Orr MD Re : Colonoscopy procedure for Kota Ibrahim Dear Dr. Orr This procedure was performed on Wednesday, March 06, 2019. My impressions and recommendations are as follows: Impressions : - Stool in the entire examined colon. - The examination was otherwise normal. - Diverticulosis in the entire examined colon. No specimens collected. Recommendations : - Discharge patient to home. - Resume previous diet. - Continue present medications. - Repeat colonoscopy in 10 years for screening purposes. - Return to primary care physician PRN. My findings are described in the full procedure note, which is enclosed. If I can be of further assistance, please feel free to contact me at Doctor phone number(s): , Fax: [phone], Work: . Sincerely, MD Tommy Negrete MD 03/06/2019 8:42:18 AM This report has been signed electronically.
[2019-03-06 08:45] VITALS: BP 133/66; BP 139/70; PULSE 52; RESP 16; O2SAT 94
[2019-03-06 08:50] VITALS: BP 133/66; BP 140/71; PULSE 53; RESP 16; TEMP 36.9; O2SAT 94
[2019-03-06 09:11] VITALS: BP 133/66
== END 2019-03-06 09:15 | disposition home or self-care (01) ==
LOC: EN 06:43 → AC 06:44
PROVIDERS: Family Provider Family Medicine; PCP Family Medicine; Referring Provider Family Medicine; Visit Provider Surgery
PROC: 0DJD8ZZ Inspection of Lower Intestinal Tract, Via Natural or Artificial Opening Endoscopic (ICD-10-PCS; CPT 45378; principal; 2019-03-06 07:55)
DX: Z86.010 Personal history of colon polyps (principal); K57.30 Diverticulosis of large intestine without perforation or abscess without bleeding; G47.33 Obstructive sleep apnea (adult) (pediatric); E11.9 Type 2 diabetes mellitus without complications; I44.7 Left bundle-branch block, unspecified; E66.9 Obesity, unspecified; Z68.37 Body mass index [BMI] 37.0-37.9, adult; I25.10 Atherosclerotic heart disease of native coronary artery without angina pectoris; I10 Essential (primary) hypertension; E78.00 Pure hypercholesterolemia, unspecified; N40.0 Benign prostatic hyperplasia without lower urinary tract symptoms; M54.16 Radiculopathy, lumbar region; Z85.828 Personal history of other malignant neoplasm of skin; Z95.5 Presence of coronary angioplasty implant and graft; Z79.02 Long term (current) use of antithrombotics/antiplatelets; Z79.84 Long term (current) use of oral hypoglycemic drugs; Z79.82 Long term (current) use of aspirin; Z79.899 Other long term (current) drug therapy; F17.220 Nicotine dependence, chewing tobacco, uncomplicated
CPT/HCPCS: G0105; 82962; J7120; J1610

== ENCOUNTER → 2019-08-03 09:15 | Outpatient (CLI) | payer MEDICARE, OTHER, SELFPAY ==
[2018-07-22 10:28] VITALS: BMI 37.9
[2019-07-14 13:03] VITALS: BMI 36.0
[2019-08-03 11:03] LABS: AST(SGOT) 13 U/L (15-37); Alanine Aminotransfer ALT/SGPT 25 U/L (16-61); Albumin, Serum 3.4 g/dL (3.2-5.0); Alkaline Phosphatase 92 U/L (45-117); Bilirubin, Direct 0.16 mg/dL (0.00-0.30); Cholesterol 113 mg/dL (200); Globulin 3.7 g/dL (2.2-4.2); High Density Lipoprotein 47 mg/dL; Protein, Total 7.1 g/dL (6.4-8.2); Triglycerides 84 mg/dL; Very Low Density Lipoprotein 17 mg/dL (5-40)
== END ==
PROVIDERS: PCP Family Medicine; Referring Provider Internal Medicine Cardiovascular Disease; Visit Provider Internal Medicine Cardiovascular Disease
DX: E78.00 Pure hypercholesterolemia, unspecified (principal)
CPT/HCPCS: 36415; 80061; 80076

== ENCOUNTER → 2020-02-16 10:45 | Outpatient (CLI) | payer MEDICARE, OTHER, SELFPAY ==
[2018-07-22 10:28] VITALS: BMI 37.9
[2020-01-25 10:31] VITALS: BMI 36.0
--- NOTE | 2020-02-16 10:45 | ECHOCS_ITS ---
Reason For Study: CAD/ASHD Procedure This was a 2D Doppler, Color Flow transthoracic echocardiogram. The study was technically difficult. Contrast injection was performed. Exam performed in department. Left Ventricle Mild concentric left ventricular hypertrophy. The estimated ejection fraction is 65 %. Stage 1 diastolic dysfunction. Septal motion consistent with IVCD. No regional wall motion abnormalities noted. Right Ventricle Normal size and thickness. Normal systolic function. Atria Normal left atrium. Normal right atrium. Normal atrial septum. Mitral Valve The mitral valve is structurally normal. No prolapse or stenosis seen. Tricuspid Valve Normal tricuspid valve. Trivial tricuspid valve insufficiency. Right ventricular systolic pressure estimated to be 32 mmHg. Aortic Valve Normal aortic valve. Trisinus/trileaflet aortic valve. Pulmonic Valve Normal pulmonic valve. Great Vessels Normal aortic root. Normal arch. Normal inferior vena cava. Inferior vena cava collapse with sniff. Pericardium/Pleural No pericardial effusion. Medication 22 gauge I.V. with prn adaptor inserted into left arm. Diluted definity 2ml given slow IV push to enhance endocardial definition. MMode/2D Measurements & Calculations LVIDd: 4.8 cm IVSd: 1.5 cm Ao root diam: 3.5 cm LVIDs: 3.7 cm LVPWd: 1.6 cm LA dimension: 4.2 cm FS: 22.6 % Time Measurements MV dec time: 0.34 sec Doppler Measurements & Calculations MV E max negrito: 52.2 cm/sec Med Peak E' Negrito: 5.9 cm/sec MV V2 max: 105.9 cm/sec MV A max negrito: 90.6 cm/sec E/E' med: 8.9 MV max P.5 mmHg MV E/A: 0.58 MV V2 mean: 50.7 cm/sec MV mean P.2 mmHg MV V2 VTI: 25.5 cm MV P1/2t max negrito: 67.4 cm/sec Ao V2 max: 133.9 cm/sec LV V1 max: 56.7 cm/sec MV P1/2t: 82.9 msec Ao max P.2 mmHg LV V1 max P.3 mmHg Ao V2 mean: 91.1 cm/sec LV V1 mean P.2 mmHg MV dec slope: 238.2 cm/sec2 Ao mean P.8 mmHg LV V1 mean: 69.6 cm/sec MVA(P1/2t): 2.7 cm2 Ao V2 VTI: 28.5 cm LV V1 VTI: 23.0 cm PA V2 max: 119.4 cm/sec TR max negrito: 283.6 cm/sec TR max P.2 mmHg Interpretation Summary Mild concentric left ventricular hypertrophy. The estimated ejection fraction is 65 %. Stage 1 diastolic dysfunction. Trivial tricuspid valve insufficiency. Right ventricular systolic pressure estimated to be 32 mmHg. Compared to echo report dated 11/03/2017, no appreciable changes noted. The study was technically difficult. Contrast injection was performed. Ordering Physician: Tommy Houser Referring Physician: Tommy Houser Performed By: Óscar Quan RCS
== END ==
PROVIDERS: PCP Family Medicine; Referring Provider Internal Medicine Cardiovascular Disease; Visit Provider Internal Medicine Cardiovascular Disease
DX: I25.10 Atherosclerotic heart disease of native coronary artery without angina pectoris (principal); G47.33 Obstructive sleep apnea (adult) (pediatric)
CPT/HCPCS: 93306; Q9957; A4216; C8929

== ENCOUNTER 2021-09-15 14:01 | Outpatient (CLI) | payer MEDICARE, OTHER, SELFPAY ==
[2018-07-22 10:28] VITALS: BMI 37.9
== END 2021-09-15 23:59 | disposition home or self-care (01) ==
LOC: PSN 14:04
PROVIDERS: PCP Family Medicine; Referring Provider Orthopaedic Surgery; Visit Provider Orthopaedic Surgery
DX: Z11.59 Encounter for screening for other viral diseases (principal)
CPT/HCPCS: 87426; C9803

== ENCOUNTER → 2024-03-20 | Outpatient (CLI) | payer MEDICARE, OTHER, SELFPAY ==
[2018-07-22 10:28] VITALS: BMI 37.9
[2024-03-20 15:02] LABS: PSA,Total - Annual Screen 3.56 ng/mL (0.00-4.00)
== END | disposition home or self-care (01) ==
PROVIDERS: PCP Family Medicine; Referring Provider Urology; Visit Provider Urology
DX: Z12.5 Encounter for screening for malignant neoplasm of prostate (principal)
CPT/HCPCS: 36415; 84153; G0103

== ENCOUNTER → 2024-11-24 | Outpatient (CLI) | payer MEDICARE, OTHER, SELFPAY ==
[2018-07-22 10:28] VITALS: BMI 37.9
--- NOTE | 2024-11-24 06:26 | ECHOCS_ITS ---
Reason For Study Reason For Study: CAD/ASHD Procedure This was a 2D Doppler, Color Flow transthoracic echocardiogram. The study was technically difficult. Exam performed in department. Left Ventricle Normal LV size. Mild concentric left ventricular hypertrophy. The LV systolic function is normal. EF is 60 %. Stage 1 diastolic dysfunction. Right Ventricle Normal right ventricle. Atria The left atrium is mildly enlarged. Normal right atrium. Mitral Valve Normal mitral valve. Tricuspid Valve Trivial tricuspid valve insufficiency. Right ventricular systolic pressure estimated to be 40 mmHg. Aortic Valve Trisinus/trileaflet aortic valve. Pulmonic Valve The pulmonic valve is not well visualized. Trivial pulmonic valve insufficiency. Great Vessels Normal sized aortic root. Pericardium/Pleural No pericardial effusion. Medication Diluted definity 2ml given slow IV push to enhance endocardial definition. MMode/2D Measurements & Calculations LVIDd: 5.1 cm IVSd: 1.3 cm Ao root diam: 3.3 cm LVIDs: 3.4 cm LVPWd: 1.4 cm LA dimension: 4.6 cm RVDd: 3.7 cm FS: 32.9 % LAV(MOD-bp): 48.3 ml LVAd ap4: 40.7 cm2 SV(MOD-sp4): 90.1 ml LAV(MOD-bp) Indexed: 23.0 ml/m2 LVLd ap4: 9.3 cm SI(MOD-sp4): 42.9 ml/m2 LAV(MOD-sp2): 43.9 ml EDV(MOD-sp4): 144.2 ml LAV(MOD-sp4): 49.9 ml EDV(sp4-el): 151.4 ml LVAs ap4: 22.4 cm2 LVLs ap4: 7.8 cm ESV(MOD-sp4): 54.1 ml ESV(sp4-el): 54.7 ml EF(MOD-sp4): 62.5 % EF(sp4-el): 63.9 % SV(sp4-el): 96.7 ml LA A4 area: 17.8 cm2 LA dimension(2D): 4.3 cm RA A4 area: 17.6 cm2 TAPSE: 2.5 cm Time Measurements MV dec time: 0.30 sec Doppler Measurements & Calculations MV E max negrito: 63.1 cm/sec Lat Peak E' Negrito: 7.9 cm/sec Med Peak E' Negrito: 7.4 cm/sec MV A max negrito: 101.6 cm/sec E/E' lat: 8.0 E/E' med: 8.6 MV E/A: 0.62 Ao V2 max: 152.7 cm/sec LV V1 max: 112.3 cm/sec PA V2 max: 142.3 cm/sec Ao max P.3 mmHg LV V1 max P.0 mmHg TR max negrito: 299.2 cm/sec TR max P.8 mmHg ECHO/Echo Complete W/ Contrast Interpretation Summary Mild concentric left ventricular hypertrophy. The LV systolic function is normal. EF is 60 %. Stage 1 diastolic dysfunction. The left atrium is mildly enlarged. Right ventricular systolic pressure estimated to be 40 mmHg. Ordering Physician: Sol Delgado Referring Physician: JADA CARUSO Performed By: Alayna Erazo RDCS
--- NOTE | 2024-11-27 12:11 | STRESSREP ---
Stress Test Report Date: 11/24/2024 Procedure: Pharmacologic stress nuclear imaging study Indications: Coronary artery disease Consent: Per the patient Procedure: The patient underwent pharmacologic (Regadenoson 0.4mg ) evaluation with a peak heart rate of 74 beats per minute (53%predicted maximal heart rate) and a peak blood pressure of 142/80 mmHg. The baseline ECG demonstrated sinus rhythm with left bundle branch block. The peak pharmacologic ECG was nondiagnostic secondary to baseline abnormality. There were no cardiac dysrhythmias pretest, during pharmacologic infusion, or recovery. There was no complaint of chest discomfort during pharmacologic infusion or recovery. The patient was injected with 14.7 millicuries of technetium 99m Cardiolite and subsequently rest SPECT Cardiolite nuclear imaging was obtained in the horizontal long, vertical long, and short axis views. The patient underwent pharmacologic (Regadenoson) evaluation. The patient was injected with 44.6 millicuries of technetium 99m Cardiolite and subsequently stress SPECT Cardiolite nuclear imaging was obtained in the horizontal long, vertical long, and short axis views. A gated Cardiolite study at peak stress was obtained. The examination was stopped secondary to completion of protocol. Rest and stress SPECT Cardiolite nuclear imaging status post realignment, normalization, and attenuation correction demonstrate mildly reduced perfusion of the inferior wall post pharmacological stress suggestive of mild ischemia. There is end systolic thickening and brightening. The gated Cardiolite study demonstrates myocardial thickening and inward wall motion. The reported LVEF is 63%. Impression: 1. Pharmacologic (Regadenoson) evaluation 2. Peak pharmacologic ECG with no diagnostic changes secondary to baseline abnormality. 3. There were no cardiac dysrhythmias pretest, during pharmacologic infusion, or recovery. 5. Mildly reduced perfusion of the inferior wall suggestive of mild inferior ischemia. 6. The gated Cardiolite study reports an LVEF of 63%. This note was generated with [employer] software. It may contain incorrect words, spelling, and punctuation that were not noted in checking the note before signing.
== END | disposition home or self-care (01) ==
LOC: CVS 06:26
PROVIDERS: PCP Family Medicine; Referring Provider Internal Medicine Cardiovascular Disease; Visit Provider Internal Medicine Cardiovascular Disease
DX: I25.10 Atherosclerotic heart disease of native coronary artery without angina pectoris (principal); Z98.61 Coronary angioplasty status
CPT/HCPCS: 78452; 93017; 93306; A9500; Q9957; A4216; C8929; J2785

== ENCOUNTER → 2025-03-26 | Outpatient (CLI) | payer MEDICARE, OTHER, SELFPAY ==
[2018-07-22 10:28] VITALS: BMI 37.9
--- OUTSIDE RECORDS SUMMARY | 2025-02-22 13:12 | XMS RPT_ITS ---
Author Name Auto Generated Organization OHIP Care Team Providers Care Aircraft Armament Mechanic Name Role Phone JADA CARUSO Primary Care Unavailable JESUS ALTMAN Attending Unavailable JADA CARUSO Primary Care Unavailable JADA CARUSO Referring Unavailable JADA CARUSO Primary Care Unavailable JADA CARUSO Attending Unavailable MARTIR GIVENS Referring Unavailable JADA CARUSO Primary Care Unavailable PROBLEMS DATE TYPE CONDITION / CODE ATTENDING STATUS [facility] 02/22/2025 Active Obesity, Class I I, BMI 35-39.9 / E66.812(ICD-10) JESUS ALTMAN Active [facility] 02/22/2025 Active Medicare annual wellness visit, subsequent / Z00.00(ICD-10) JESUS ALTMAN Active [facility] 09/13/2022 Active Living will in p lace / Z78.9(ICD-10) JESUS ALTMAN Active [facility] 06/23/2021 Active Obstructive slee p apnea syndrome / G47.33(ICD-10) JESUS ALTMAN Active [facility] 07/17/2020 Active Coronary atheros clerosis due to lipid rich plaque / I25.83(ICD-10) JESUS ALTMAN Active [facility] 09/18/2016 Active Benign prostatic hyperplasia, unspecified whether lower urinary tract symptoms present / N40.0(ICD-10) JESUS ALTMAN Active [facility] 09/18/2016 Active Type 2 diabetes mellitus without complication, without long-term current use of insulin (HCC) / E11.9(ICD-10) JESUS ALTMAN Active [facility] 07/08/2015 Active Mixed hyperlipid emia / E78.2(ICD-10) JESUS ALTMAN Active [facility] 07/02/2014 Active Essential hypert ension, benign / I10(ICD-10) JESUS ALTMAN Active [facility] 02/22/2025 Active Type 2 diabetes mellitus with other specified complication, without long-term current use of insulin (HCC) / E11.69(ICD-10) JESUS ALTMAN Active [facility] 02/22/2025 Active Screening for de pression / Z13.31(ICD-10) JESUS ALTMAN Active [facility] 02/22/2025 Active Encounter for sc reening examination for other mental health and behavioral disorders / Z13.39(ICD-10) JESUS ALTMAN Active [facility] PROCEDURES No Procedure Records Found RESULTS PROGRESS Observed: 03/27/2025 8:53 AM Status: COMPLETED Source: [facility] HNO ID: [id number] Author: LOGAN DUFFY MA Service: ? Author Type: Email Marketing Coordinator Type: Progress Notes Filed: 03/27/2025 08:54 Note Text: Scan on 03/26/2025 6:37 PM by ProviderTiffanie PA-C: PSA Scan on 03/26/2025 4:29 PM by ProviderTiffanie PA-C: Consultation - PROGRESS Observed: 02/22/2025 1:28 PM Status: COMPLETED Source: [facility] HNO ID: [id number] Author: JESUS ALTMAN PA-C Service: ? Author Type: Physician Plant Maintenance Engineer Type: Progress Notes Filed: 02/22/2025 14:19 Note Text: Nadia Ibrahim is a 84 year old male here for a Medicare wellness visit. Medicare Health Risk Assessment General Health Good Exercise: Minutes/Day ADL- mowing, sawing wood, etc Exercise: Days/Week daily Alcohol: Daily Use Never Alcohol: Drinks/Day Patient does not drink0 Alcohol: 6 or more drinks Never Feel off balance no Concerns: Teeth/Dentures no Concerns: Sexual function no Troubled by feelings no Frequency: Eating healthy diet yes ADLs requiring help no Safety precautions in home/vehicle yes Smoke, vape, chews tobacco Chew infrequently- when deer hunting. Difficulty hearing yes Difficulty seeing no Current Providers Specialists: I have reviewed specialist-related care of the patient in the medical record. Medical/Family history review Reviewed and updated problem list, medical/surgical/family/social history, medications, and allergies. Opioid use review Opioid Medications (last 90 days) No data to display Anxiety/Depression screening PHQ-2 Score: 0 (Lower risk for depression) SHEELA-2 Score: 0 (Lower risk for anxiety) Recommendation: no further intervention at this time Cognitive screening Mini Cog Score: 3 Cognitive screening reviewed and No further action needed (score 3-5). Functional Observation Was the patient's Timed Up AND Go test unsteady or >= 12 seconds? No Advance Care Planning Surrogate decision maker and/or advance care plan documented Measurements BP 134/66 Pulse (!) 50 Resp 16 Ht 164 cm (5' 4.57) Wt 95.9 kg (211 lb 6.4 oz) SpO2 98% BMI 35.65 kg/m? Vision Screening: Follows with optometry/ophthalmology Assessment/Plan Medicare annual wellness visit, subsequent (Z00.00) - Counseled on healthy diet and regular exercise - Fall avoidance information provided - Personalized prevention plan provided Chief Complaint Patient presents with: Medicare Wellness Exam Established Patient HPI Nadia Ibrahim is a 84 year old male who presents here today for extensive. Patient with hx of CAD, HTN, hyperlipidemia, ARLET, DM2, elevated PSA and those as below. Routine exam. No specific concerns today. Angina: - Managed with isosorbide mononitrate 20 mg BID. - Nadia reports difficulty obtaining medication from [facility]; has been using [facility]. - Inquires about reducing dosage to 10 mg BID due to availability issues. - Recent EKG and stress test performed in the spring. - Under the care of turpentine distiller Dr. Delgado Past medical history, appointments, medications, allergies reviewed. Previous Medical History PAST MEDICAL HISTORY Diagnosis Date Acute right-sided low back pain with right-sided sciatica 03/22/2017 Benign prostatic hyperplasia 09/18/2016 Complex renal cyst 08/31/2012 Coronary atherosclerosis due to lipid rich plaque 07/08/2015 Seeing Diabetic eye exam (HCC) 07/29/2015 Last done: 03/30/2018 No Retinopathy Diverticulosis of large intestine 08/19/2015 Eczema 09/22/2018 hands, thickened skin Elevated prostate specific antigen (PSA) 04/27/[address] Benavides Essential hypertension, benign History of heart artery stent 11/17/201710/2017: stent to Mid LAD Hx of colonic polyp 08/19/2015 Kidney stone 02/02/[address] 08/19/2022 DPA: 1st: Nadia Ibrahim,son 2nd: Adriano Ibrahim, son Lumbar radiculopathy 03/22/2017 Medicare annual wellness visit, subsequent 09/21/2017 Medicare Part B: 12/26/2008 last done: 09/22/2018 Mixed hyperlipidemia 10/16/2005 Neoplasm of uncertain behavior of skin 11/01/2014 multiple dark pigmented moles. 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 Burgos, repeat 3 yrs. COLONOSCOPY 03/06/2019 Dr. Burgos, repeat 10 yrs CORONARY ENDARTERCOMY OPEN ANY METHOD 1995 Angioplasty FINGER SURGERY HX Left 08/2021 left 3rd digit PAST SURGICAL HISTORY OF perirectal abscess PAST SURGICAL HISTORY OF 11/17/2017 Stent to Mid LAD RPR UMBILICAL HRNA 5 YRS/> REDUCIBLE 2013 Hernia repair, umbilical >5yr TOTAL KNEE REPLACEMENT 11/26/2014 right total knee Family History FAMILY HISTORY Problem Relation Age of Onset Cancer Father stomch ca. Coronary Artery Disease Father Colon Cancer Mother age 95 other (Other) Sister kidney stones other (Other) Brother kidney stones Patient Allergies ALLERGIES Allergen Reactions Clindamycin Swelling Throat swelling, heartburn Influenza Virus Vac* Unknown Got sick right away Lisinopril Cough Penicillins Rash Current Medications Current Outpatient Medications on File Prior to Visit Medication Sig clopidogrel (PLAVIX) 75 mg tablet Take 1 tablet by mouth once daily. telmisartan (MICARDIS) 80 mg tablet Take 1 tablet by mouth once daily. isosorbide mononitrate (MONOKET) 20 mg tablet Take 1 tablet by mouth two times a day. atorvastatin (LIPITOR) 80 mg tablet Take 1 tablet by mouth once daily. dilTIAZem XR (DILACOR XR) 240 mg 24 hr capsule Take 1 capsule by mouth once daily. finasteride (PROSCAR) 5 mg tablet Take 1 tablet by mouth once daily. fluticasone (FLONASE) 50 mcg/actuation nasal spray Use 2 Sprays in each nostril once daily. Rinse mouth after use. hydroCHLOROthiazide 25 mg tablet Take 1 tablet by mouth once daily. metFORMIN ER (GLUCOPHAGE XR) 500 mg 24 hr tablet Take 1 tablet by mouth daily with breakfast. tamsulosin (FLOMAX) 0.4 mg Take 1 capsule by mouth once daily. metoprolol succinate ER (TOPROL XL) 25 mg 24 hr tablet Take 1.5 tablets by mouth once daily. Per [facility] nitroglycerin sublingual (NITROQUICK) 0.4 mg SL tablet Dissolve under the tongue. UNDER TONGUE X 3 DOSES IF STILL HAVE CHEST PAIN SEEK EMERGENCY HELP sodium chloride (SALINE MIST) 0.65 % nasal spray Use 1 Stella in the nose as needed for cold/allergy symptoms. azelastine (ASTELIN) 0.1% nasal spray SPRAY 1 SPRAY INTO EACH NOSTRIL TWICE A DAY (Patient taking differently: Use 1 spray in each nostril once daily. As needed for congestion) blood sugar diagnostic (FREESTYLE LITE STRIPS) test strip Test blood sugar(s) one times daily. Dx: 250.00. Insulin: No lancets (FREESTYLE LANCETS) 28 gauge misc Test blood sugar(s) 1 times daily. Dx: 250.00. Insulin: No THERAPEUTIC MULTIVITAMIN TAB Take one(1) tablet daily. No current facility-administered medications on file prior to visit. Social History SOCIAL HISTORY[1] Review of Symptoms REVIEW OF SYSTEMS Constitutional: (-) unintentional weight loss, (-) fever, (-) fatigue Eyes: (-) visual disturbances Ears/Nose/Mouth/Throat: (+) hearing loss, (-) dental problems, (-) sinus problems Neck: (-) neck swelling Cardiovascular: (-) chest pain, (-) palpitations, (-) peripheral edema Respiratory: (-) cough, (-) wheezing, (-) dyspnea Gastrointestinal: (-) nausea, (-) vomiting, (-) heartburn, (-) change in bowel habits, (-) hematochezia Genitourinary: (-) urinary symptoms Neurological: (-) balance problems Psychiatric: (-) emotional concerns SEE HPI EXAM: BP 134/66 Pulse (!) 50 Resp 16 Ht 164 cm (5' 4.57) Wt 95.9 kg (211 lb 6.4 oz) SpO2 98% BMI 35.65 kg/m? General Appearance: Well appearing, alert, in no acute distress, well-hydrated, well nourished. and Obese. Head: Normocephalic, no masses, lesions, tenderness or abnormalities. Eyes: Anicteric sclera. Pupils are equally round and reactive to light. Extraocular movements are intact. . Ears: External ears normal, canals with mild cerumen. Visualized TMs wnl. Nose/Sinuses: Nares normal, septum midline, mucosa normal, no drainage or sinus tenderness. Oropharynx: Lips, mucosa, and tongue normal, teeth and gums normal, oropharynx normal. Neck: Supple, no adenopathy; thyroid symmetric, normal size, no bruits. Lungs: Lungs clear to auscultation. No wheezing, rhonchi, rales.. Heart: RRR without murmur, gallop, or rubs. No ectopy. Abdomen: Normal abdominal exam, Abdomen soft, non-tender. Bowel sounds normal. No masses, organomegaly. Extremities: No deformities, edema, skin discoloration, clubbing or cyanosis. Good capillary refill. . Peripheral Pulses: Normal. Neurologic: Gait normal. Reflexes normal and symmetric. Sensation grossly intact.. Feet:Shoes and socks removed, No deformities, ulcers, calluses, normal distal pulses, sensitive to 10 gm monofilament, and vibratory perception normal Health Maintenance List Diabetic Foot Exam due on 02/23/2025 DTaP,Tdap,Td Vaccine(2 - Td or Tdap) due on 08/25/2025 RSV Vaccine(1 - 1-dose 75+ series) due on 08/25/2025 Shingrix Vaccine(2 of 2) due on 08/25/2025 Medicare Annual Wellness Visit due on 02/23/2025 Dilated Retinal Exam due on 04/26/2025 HbA1C due on 08/15/2025 Urine Albumin:Creatinine Ratio due on 02/12/2026 LDL Cholesterol due on 02/12/2026 Depression Screening due on 02/22/2026 Anxiety Screening due on 02/22/2026 Advance Directive Discussion Completed Pneumococcal Vaccine: 50+ Completed Influenza Vaccine Discontinued Colorectal Cancer Screening Discontinued Data reviewed Latest Ref Rng 02/12/2025 WBC 3.70 - 11.00 k/uL 5.93 RBC 4.20 - 6.00 m/uL 4.71 Hemoglobin 13.0 - 17.0 g/dL 13.9 Hematocrit 39.0 - 51.0 % 42.3 MCV 80.0 - 100.0 fL 89.8 MCH 26.0 - 34.0 pg 29.5 MCHC 30.5 - 36.0 g/dL 32.9 RDW-CV 11.5 - 15.0 % 13.6 Platelet Count 150 - 400 k/uL 184 MPV 9.0 - 12.7 fL 10.9 Neut% % 66.1 Abs Neut (ANC) 1.45 - 7.50 k/uL 3.92 Lymph% % 20.1 Abs Lymph 1.00 - 4.00 k/uL 1.19 [place]% % 10.6 Abs [place] <0.87 k/uL 0.63 Eosin% % 2.0 Abs Eosin <0.46 k/uL 0.12 Baso% % 1.0 Abs Baso <0.11 k/uL 0.06 Immature Gran % % 0.2 IMMATURE GRANS (ABS) <0.10 k/uL <0.03 NRBC /100 WBC 0.0 Absolute nRBC <0.01 k/uL <0.01 DTYPE Auto Color Yellow Yellow Clarity Clear Clear Glucose, Urine Negative Negative Bilirubin, Urine Negative Negative Ketones, Urine Negative Negative [employer], Ur 1.005 - 1.030 1.011 Hemoglobin/Blood,Ur Negative Negative pH, Urine 5.0 - 8.0 7.5 Protein, Urine Negative Negative Urobilinogen 0.2-1.0 EU/dL 0.2 EU/dL Nitrites Negative Negative Leukest Negative Trace ! WBC, Urine 0-5 /HPF 0-5 /HPF RBC, Urine 0-2 /HPF 0-2 /HPF Bacteria Negative /HPF Negative Epithelial Cells /HPF None Seen Hyaline Cast 0 /LPF 0 /LPF Protein, Total 6.3 - 8.0 g/dL 6.4 Albumin 3.9 - 4.9 g/dL 3.7 (L) Calcium 8.5 - 10.2 mg/dL 9.4 Bilirubin, Total 0.2 - 1.3 mg/dL 0.7 Alkaline Phosphatase 38 - 113 U/L 87 AST 14 - 40 U/L 20 ALT 10 - 54 U/L 20 Glucose 74 - 99 mg/dL 87 BUN 9 - 24 mg/dL 7 (L) Creatinine 0.73 - 1.22 mg/dL 0.67 (L) Sodium 136 - 144 mmol/L 142 Potassium 3.7 - 5.1 mmol/L 4.1 Chloride 98 - 107 mmol/L 104 CO2 22 - 30 mmol/L 27 Anion Gap 8 - 15 mmol/L 11 eGFR >=60 mL/min/1.73m? 93 Total Cholesterol, Nonfasting <200 mg/dL 119 Triglycerides, Nonfasting <150 mg/dL 48 HDL Cholesterol, Nonfasting >39 mg/dL 50 LDL Cholesterol Calculated, Nonfasting <100 mg/dL 58 Non HDL Cholesterol, Nonfasting <130 mg/dL 69 VLDL Cholesterol, Nonfasting <30 mg/dL 7 Total Chol/HDL Ratio, Nonfasting <5.10 mg/dL 2.38 LDL/HDL Ratio, Nonfasting <2.54 mg/dL 1.16 Creatinine, Ur Random (UCRR) 20.0 - 300.0 mg/dL 79.9 Albumin, Urine Random mg/L 13.0 Albumin/Creat Ratio <30 mg/g 16 Hemoglobin A1C 4.3 - 5.6 % 6.0 (H) Estimated Average Glucose mg/dL 126 Legend: ! Abnormal (L) Low (H) High Assessment and Plan 1. Medicare annual wellness visit, subsequent (Z00.00) - Completed Medicare annual wellness visit; patient rates general health as good and reports daily physical activity. - Follow-up in 6 months. 2. Type 2 diabetes mellitus without complication, without long-term current use of insulin (HCC) (E11.9) 3. Type 2 diabetes mellitus with other specified complication, without long-term current use of insulin (HCC) (E11.69) - HbA1c stable at 6.0% (previously 6.1%); no changes to current management. - Continue current diabetes management. - Order labs for next visit in 6 months. 4. Living will in place (Z78.9) - Living will on file; no recent changes. 5. Mixed hyperlipidemia (E78.2) - Cholesterol levels within normal range. 6. Essential hypertension, benign (I10) - Well controlled - Continue current management 7. Benign prostatic hyperplasia, unspecified whether lower urinary tract symptoms present (N40.0) - continue current management 8. Screening for depression (Z13.31) 9. Encounter for screening examination for other mental health and behavioral disorders (Z13.39) - negative screening 10. Coronary atherosclerosis due to lipid rich plaque (I25.83) - Isosorbide mononitrate 20 mg BID changed to 10 mg, taking two BID due to pharmacy supply issues. 11. Obstructive sleep apnea syndrome (G47.33) - stable on current management 12. Obesity, Class II, BMI 35-39.9 (E66.812) stable weight. Follow up in 6 months routine with labs prior. Jesus Altman PA-C Recording using [employer] software for draft documentation of the visit was discussed with the patient/authorized bank representative; all questions welcomed and answered. Patient/authorized bank representative agreed to proceed [1] Social History Tobacco Use Smoking status: Never Smokeless tobacco: Current Types: Chew Tobacco comments: occassionaly Vaping Use Vaping status: Never Used Substance Use Topics Alcohol use: Never Drug use: No CNOV Observed: 02/22/2025 1:20 PM Status: COMPLETED Source: [facility] NADIA IBRAHIM ([id number]) 1940 Andrea NFR Date Time Provider Department 02/22/25 1:20 PM JESUS ALTMAN During your visit today, we recorded the following information about you: Pulse Respiration Blood pressure Weight 50/minute 16/minute 134/66 95.9 kg Height 1.64 m Jesus Altman PA-C 02/22/2025 2:19 PM Signed Nadia Elliott [place] is a 84 year old male here for a Medicare wellness visit. Medicare Health Risk Assessment General Health Good Exercise: Minutes/Day ADL- mowing, sawing wood, etc Exercise: Days/Week daily Alcohol: Daily Use Never Alcohol: Drinks/Day Patient does not drink0 Alcohol: 6 or more drinks Never Feel off balance no Concerns: Teeth/Dentures no Concerns: Sexual function no Troubled by feelings no Frequency: Eating healthy diet yes ADLs requiring help no Safety precautions in home/vehicle yes Smoke, vape, chews tobacco Chew infrequently- when deer hunting. Difficulty hearing yes Difficulty seeing no Current Providers Specialists: I have reviewed specialist-related care of the patient in the medical record. Medical/Family history review Reviewed and updated problem list, medical/surgical/family/social history, medications, and allergies. Opioid use review Opioid Medications (last 90 days) No data to display Anxiety/Depression screening PHQ-2 Score: 0 (Lower risk for depression) SHEELA-2 Score: 0 (Lower risk for anxiety) Recommendation: no further intervention at this time Cognitive screening Mini Cog Score: 3 Cognitive screening reviewed and No further action needed (score 3-5). Functional Observation Was the patient's Timed Up AND Go test unsteady or >= 12 seconds? No Advance Care Planning Surrogate decision maker and/or advance care plan documented Measurements BP 134/66 Pulse (!) 50 Resp 16 Ht 164 cm (5' 4.57) Wt 95.9 kg (211 lb 6.4 oz) SpO2 98% BMI 35.65 kg/m? Vision Screening: Follows with optometry/ophthalmology Assessment/Plan Medicare annual wellness visit, subsequent (Z00.00) - Counseled on healthy diet and regular exercise - Fall avoidance information provided - Personalized prevention plan provided Chief Complaint Patient presents with: Medicare Wellness Exam Established Patient HPI Nadia Ibrahim is a 84 year old male who presents here today for extensive. Patient with hx of CAD, HTN, hyperlipidemia, ARLET, DM2, elevated PSA and those as below. Routine exam. No specific concerns today. Angina: - Managed with isosorbide mononitrate 20 mg BID. - Nadia reports difficulty obtaining medication from [facility]; has been using [facility]. - Inquires about reducing dosage to 10 mg BID due to availability issues. - Recent EKG and stress test performed in the spring. - Under the care of turpentine distiller Dr. Delgado Past medical history, appointments, medications, allergies reviewed. Previous Medical History PAST MEDICAL HISTORY Diagnosis Date Acute right-sided low back pain with right-sided sciatica 03/22/2017 Benign prostatic hyperplasia 09/18/2016 Complex renal cyst 08/31/2012 Coronary atherosclerosis due to lipid rich plaque 07/08/2015 Seeing Diabetic eye exam ([facility]) 07/29/2015 Last done: 03/30/2018 No Retinopathy Diverticulosis of large intestine 08/19/2015 Eczema 09/22/2018 hands, thickened skin Elevated prostate specific antigen (PSA) 04/27/[address] Benavides Essential hypertension, benign History of heart artery stent 11/17/201710/2017: stent to Mid LAD Hx of colonic polyp 08/19/2015 Kidney stone 02/02/[address] 08/19/2022 DPA: 1st: Nadia Ibrahim,son 2nd: Adriano Ibrahim, son Lumbar radiculopathy 03/22/2017 Medicare annual wellness visit, subsequent 09/21/2017 Medicare Part B: 12/26/2008 last done: 09/22/2018 Mixed hyperlipidemia 10/16/2005 Neoplasm of uncertain behavior of skin 11/01/2014 multiple dark pigmented moles. 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 Burgos, repeat 3 yrs. COLONOSCOPY 03/06/2019 Dr. Burgos, repeat 10 yrs CORONARY ENDARTERCOMY OPEN ANY METHOD 1996 Angioplasty FINGER SURGERY HX Left 08/2021 left 3rd digit PAST SURGICAL HISTORY OF perirectal abscess PAST SURGICAL HISTORY OF 11/17/2017 Stent to Mid LAD RPR UMBILICAL HRNA 5 YRS/> REDUCIBLE 2013 Hernia repair, umbilical >5yr TOTAL KNEE REPLACEMENT 11/26/2014 right total knee Family History FAMILY HISTORY Problem Relation Age of Onset Cancer Father stomch ca. Coronary Artery Disease Father Colon Cancer Mother age 95 other (Other) Sister kidney stones other (Other) Brother kidney stones Patient Allergies ALLERGIES Allergen Reactions Clindamycin Swelling Throat swelling, heartburn Influenza Virus Vac* Unknown Got sick right away Lisinopril Cough Penicillins Rash Current Medications Current Outpatient Medications on File Prior to Visit Medication Sig clopidogrel (PLAVIX) 75 mg tablet Take 1 tablet by mouth once daily. telmisartan (MICARDIS) 80 mg tablet Take 1 tablet by mouth once daily. isosorbide mononitrate (MONOKET) 20 mg tablet Take 1 tablet by mouth two times a day. atorvastatin (LIPITOR) 80 mg tablet Take 1 tablet by mouth once daily. dilTIAZem XR (DILACOR XR) 240 mg 24 hr capsule Take 1 capsule by mouth once daily. finasteride (PROSCAR) 5 mg tablet Take 1 tablet by mouth once daily. fluticasone (FLONASE) 50 mcg/actuation nasal spray Use 2 Sprays in each nostril once daily. Rinse mouth after use. hydroCHLOROthiazide 25 mg tablet Take 1 tablet by mouth once daily. metFORMIN ER (GLUCOPHAGE XR) 500 mg 24 hr tablet Take 1 tablet by mouth daily with breakfast. tamsulosin (FLOMAX) 0.4 mg Take 1 capsule by mouth once daily. metoprolol succinate ER (TOPROL XL) 25 mg 24 hr tablet Take 1.5 tablets by mouth once daily. Per [facility] nitroglycerin sublingual (NITROQUICK) 0.4 mg SL tablet Dissolve under the tongue. UNDER TONGUE X 3 DOSES IF STILL HAVE CHEST PAIN SEEK EMERGENCY HELP sodium chloride (SALINE MIST) 0.65 % nasal spray Use 1 Stella in the nose as needed for cold/allergy symptoms. azelastine (ASTELIN) 0.1% nasal spray SPRAY 1 SPRAY INTO EACH NOSTRIL TWICE A DAY (Patient taking differently: Use 1 spray in each nostril once daily. As needed for congestion) blood sugar diagnostic (FREESTYLE LITE STRIPS) test strip Test blood sugar(s) one times daily. Dx: 250.00. Insulin: No lancets (FREESTYLE LANCETS) 28 gauge misc Test blood sugar(s) 1 times daily. Dx: 250.00. Insulin: No THERAPEUTIC MULTIVITAMIN TAB Take one(1) tablet daily. No current facility-administered medications on file prior to visit. Social History SOCIAL HISTORY[1] Review of Symptoms REVIEW OF SYSTEMS Constitutional: (-) unintentional weight loss, (-) fever, (-) fatigue Eyes: (-) visual disturbances Ears/Nose/Mouth/Throat: (+) hearing loss, (-) dental problems, (-) sinus problems Neck: (-) neck swelling Cardiovascular: (-) chest pain, (-) palpitations, (-) peripheral edema Respiratory: (-) cough, (-) wheezing, (-) dyspnea Gastrointestinal: (-) nausea, (-) vomiting, (-) heartburn, (-) change in bowel habits, (-) hematochezia Genitourinary: (-) urinary symptoms Neurological: (-) balance problems Psychiatric: (-) emotional concerns SEE HPI EXAM: BP 134/66 Pulse (!) 50 Resp 16 Ht 164 cm (5' 4.57) Wt 95.9 kg (211 lb 6.4 oz) SpO2 98% BMI 35.65 kg/m? General Appearance: Well appearing, alert, in no acute distress, well-hydrated, well nourished. and Obese. Head: Normocephalic, no masses, lesions, tenderness or abnormalities. Eyes: Anicteric sclera. Pupils are equally round and reactive to light. Extraocular movements are intact. . Ears: External ears normal, canals with mild cerumen. Visualized TMs wnl. Nose/Sinuses: Nares normal, septum midline, mucosa normal, no drainage or sinus tenderness. Oropharynx: Lips, mucosa, and tongue normal, teeth and gums normal, oropharynx normal. Neck: Supple, no adenopathy; thyroid symmetric, normal size, no bruits. Lungs: Lungs clear to auscultation. No wheezing, rhonchi, rales.. Heart: RRR without murmur, gallop, or rubs. No ectopy. Abdomen: Normal abdominal exam, Abdomen soft, non-tender. Bowel sounds normal. No masses, organomegaly. Extremities: No deformities, edema, skin discoloration, clubbing or cyanosis. Good capillary refill. . Peripheral Pulses: Normal. Neurologic: Gait normal. Reflexes normal and symmetric. Sensation grossly intact.. Feet:Shoes and socks removed, No deformities, ulcers, calluses, normal distal pulses, sensitive to 10 gm monofilament, and vibratory perception normal Health Maintenance List Diabetic Foot Exam due on 02/23/2025 DTaP,Tdap,Td Vaccine(2 - Td or Tdap) due on 08/25/2025 RSV Vaccine(1 - 1-dose 75+ series) due on 08/25/2025 Shingrix Vaccine(2 of 2) due on 08/25/2025 Medicare Annual Wellness Visit due on 02/23/2025 Dilated Retinal Exam due on 04/26/2025 HbA1C due on 08/15/2025 Urine Albumin:Creatinine Ratio due on 02/12/2026 LDL Cholesterol due on 02/12/2026 Depression Screening due on 02/22/2026 Anxiety Screening due on 02/22/2026 Advance Directive Discussion Completed Pneumococcal Vaccine: 50+ Completed Influenza Vaccine Discontinued Colorectal Cancer Screening Discontinued Data reviewed Latest Ref Rng 02/12/2025 WBC 3.70 - 11.00 k/uL 5.93 RBC 4.20 - 6.00 m/uL 4.71 Hemoglobin 13.0 - 17.0 g/dL 13.9 Hematocrit 39.0 - 51.0 % 42.3 MCV 80.0 - 100.0 fL 89.8 MCH 26.0 - 34.0 pg 29.5 MCHC 30.5 - 36.0 g/dL 32.9 RDW-CV 11.5 - 15.0 % 13.6 Platelet Count 150 - 400 k/uL 184 MPV 9.0 - 12.7 fL 10.9 Neut% % 66.1 Abs Neut (ANC) 1.45 - 7.50 k/uL 3.92 Lymph% % 20.1 Abs Lymph 1.00 - 4.00 k/uL 1.19 [place]% % 10.6 Abs [place] <0.87 k/uL 0.63 Eosin% % 2.0 Abs Eosin <0.46 k/uL 0.12 Baso% % 1.0 Abs Baso <0.11 k/uL 0.06 Immature Gran % % 0.2 IMMATURE GRANS (ABS) <0.10 k/uL <0.03 NRBC /100 WBC 0.0 Absolute nRBC <0.01 k/uL <0.01 DTYPE Auto Color Yellow Yellow Clarity Clear Clear Glucose, Urine Negative Negative Bilirubin, Urine Negative Negative Ketones, Urine Negative Negative [employer], Ur 1.005 - 1.030 1.011 Hemoglobin/Blood,Ur Negative Negative pH, Urine 5.0 - 8.0 7.5 Protein, Urine Negative Negative Urobilinogen 0.2-1.0 EU/dL 0.2 EU/dL Nitrites Negative Negative Leukest Negative Trace ! WBC, Urine 0-5 /HPF 0-5 /HPF RBC, Urine 0-2 /HPF 0-2 /HPF Bacteria Negative /HPF Negative Epithelial Cells /HPF None Seen Hyaline Cast 0 /LPF 0 /LPF Protein, Total 6.3 - 8.0 g/dL 6.4 Albumin 3.9 - 4.9 g/dL 3.7 (L) Calcium 8.5 - 10.2 mg/dL 9.4 Bilirubin, Total 0.2 - 1.3 mg/dL 0.7 Alkaline Phosphatase 38 - 113 U/L 87 AST 14 - 40 U/L 20 ALT 10 - 54 U/L 20 Glucose 74 - 99 mg/dL 87 BUN 9 - 24 mg/dL 7 (L) Creatinine 0.73 - 1.22 mg/dL 0.67 (L) Sodium 136 - 144 mmol/L 142 Potassium 3.7 - 5.1 mmol/L 4.1 Chloride 98 - 107 mmol/L 104 CO2 22 - 30 mmol/L 27 Anion Gap 8 - 15 mmol/L 11 eGFR >=60 mL/min/1.73m? 93 Total Cholesterol, Nonfasting <200 mg/dL 119 Triglycerides, Nonfasting <150 mg/dL 48 HDL Cholesterol, Nonfasting >39 mg/dL 50 LDL Cholesterol Calculated, Nonfasting <100 mg/dL 58 Non HDL Cholesterol, Nonfasting <130 mg/dL 69 VLDL Cholesterol, Nonfasting <30 mg/dL 7 Total Chol/HDL Ratio, Nonfasting <5.10 mg/dL 2.38 LDL/HDL Ratio, Nonfasting <2.54 mg/dL 1.16 Creatinine, Ur Random (UCRR) 20.0 - 300.0 mg/dL 79.9 Albumin, Urine Random mg/L 13.0 Albumin/Creat Ratio <30 mg/g 16 Hemoglobin A1C 4.3 - 5.6 % 6.0 (H) Estimated Average Glucose mg/dL 126 Legend: ! Abnormal (L) Low (H) High Assessment and Plan 1. Medicare annual wellness visit, subsequent (Z00.00) - Completed Medicare annual wellness visit; patient rates general health as good and reports daily physical activity. - Follow-up in 6 months. 2. Type 2 diabetes mellitus without complication, without long-term current use of insulin (HCC) (E11.9) 3. Type 2 diabetes mellitus with other specified complication, without long-term current use of insulin (HCC) (E11.69) - HbA1c stable at 6.0% (previously 6.1%); no changes to current management. - Continue current diabetes management. - Order labs for next visit in [address] months[address] Living will in place (Z78.9) - Living will on file; no recent changes. 5. Mixed hyperlipidemia (E78.2) - Cholesterol levels within normal range. 6. Essential hypertension, benign (I10) - Well controlled - Continue current management 7. Benign prostatic hyperplasia, unspecified whether lower urinary tract symptoms present (N40.0) - continue current management 8. Screening for depression (Z13.31) 9. Encounter for screening examination for other mental health and behavioral disorders (Z13.39) - negative screening 10. Coronary atherosclerosis due to lipid rich plaque (I25.83) - Isosorbide mononitrate 20 mg BID changed to 10 mg, taking two BID due to pharmacy supply issues. 11. Obstructive sleep apnea syndrome (G47.33) - stable on current management 12. Obesity, Class II, BMI 35-39.9 (E66.812) stable weight. Follow up in 6 months routine with labs prior. Jesus Altman PA-C Recording using [employer] software for draft documentation of the visit was discussed with the patient/authorized bank representative; all questions welcomed and answered. Patient/authorized bank representative agreed to proceed [1] Social History Tobacco Use Smoking status: Never Smokeless tobacco: Current Types: Chew Tobacco comments: occassionaly Vaping Use Vaping status: Never Used Substance Use Topics Alcohol use: Never Drug use: No Jesus Altman PA-C 02/22/2025 2:09 PM Signed Screening schedule The following prevention plan is recommended: Diabetic Foot Exam due on 02/23/2025 WHAT YOU CAN DO TO PREVENT FALLS Many falls can be prevented. By making some changes, you can lower your chances of falling. Four things YOU can do to prevent falls for you* and your caregiver 1. Begin a regular exercise program Exercise is one of the most important ways to lower your chances of falling. It makes you stronger and helps you feel better. Exercises that improve balance and coordination (like Michael Chi) are the most helpful. Lack of exercise leads to weakness and increases your chances of falling. Ask your doctor or health care provider about the best type of exercise program for you. 2. Have your health care provider review your medicines Have your doctor or pharmacist review all the medicines you take, even [id number] medicines. As you get older, the way medicines work in your body can change. Some medicines, or combinations of medicines, can make you sleepy or dizzy and can cause you to fall. 3. Have your vision checked Have your eyes checked by an eye doctor at least once a year. You may be wearing the wrong glasses or have a condition like glaucoma or cataracts that limits your vision. Poor vision can increase your chances of falling. 4. Make your home safer About half of all falls happen at home. To make your home safer: Remove things you can trip over (like papers, books, clothes, and shoes) from stairs and places where you walk. Remove small throw rugs or use double-sided tape to keep the rugs from slipping. Keep items you use often in cabinets you can reach easily without using a step stool. Have grab bars put in next to your toilet and in the tub or shower. Use non-slip mats in the bathtub and on shower floors. Improve the lighting in your home. As you get older, you need brighter lights to see well. Hang light-weight curtains or shades to reduce glare. Have handrails and lights put in on all staircases. Wear shoes both inside and outside the house. Avoid going barefoot or wearing slippers. For more information, contact: Centers for Disease Control and Prevention www.cdc.gov/injury * This information may not apply if you have certain medical conditions. Allergies As of Date: 02/22/2025 Noted Allergy Reaction CLINDAMYCIN 09/21/2017 7 - Swelling Comments: Throat swelling, heartburn INFLUENZA VIRUS VACCINES 05/28/2023 16 - Unknown Comments: Got sick right away LISINOPRIL 12/23/2007 3 - Cough PENICILLINS 04/17/2005 2 - Rash Date Reviewed: 02/22/2025 Reviewed by: Becka Faye LPN - Fully Assessed Reason for Visit: Medicare Wellness Exam [4060] Established Patient [175] Primary Visit Diagnosis:Medicare annual wellness visit, subsequent [Z00.00] Other Visit Diagnoses:Type 2 diabetes mellitus without complication, without long-term current use of insulin (HCC) [E11.9] Living will in place [Z78.9] Mixed hyperlipidemia [E78.2] Essential hypertension, benign [I10] Benign prostatic hyperplasia, unspecified whether lower urinary tract symptoms present [N40.0] Type 2 diabetes mellitus with other specified complication, without long-term current use of insulin (HCC) [E11.69] Screening for depression [Z13.31] Encounter for screening examination for other mental health and behavioral disorders [Z13.39] Coronary atherosclerosis due to lipid rich plaque [I25.83] Obstructive sleep apnea syndrome [G47.33] Obesity, Class II, BMI 35-39.9 [E66.812] Order(s):atorvastatin (LIPITOR) 80 mg tabletTake 1 tablet by mouth once daily.Disp: 90 tabletRfl: 1 dilTIAZem XR (DILACOR XR) 240 mg 24 hr capsuleTake 1 capsule by mouth once daily.Disp: 90 capsuleRfl: 1 finasteride (PROSCAR) 5 mg tabletTake 1 tablet by mouth once daily.Disp: 90 tabletRfl: 1 hydroCHLOROthiazide 25 mg tabletTake 1 tablet by mouth once daily.Disp: 90 tabletRfl: 1 metFORMIN ER (GLUCOPHAGE XR) 500 mg 24 hr tabletTake 1 tablet by mouth daily with breakfast.Disp: 90 tabletRfl: 1 metoprolol succinate ER (TOPROL XL) 25 mg 24 hr tabletTake 1.5 tablets by mouth once daily. [facility] Group[facility]p: 135 tabletRfl: 3 tamsulosin (FLOMAX) 0.4 mgTake 1 capsule by mouth once daily.Disp: 90 capsuleRfl: 1 ammonium lactate (LAC-HYDRIN) 12 % creamApply 1 application to affected area two times a day as needed.Disp: 385 gRfl: 3 DEPRESSION SCREENING [] Order #: [id number]: 1 ANXIETY SCREENING [] Order #: [id number]: 1 HEMOGLOBIN A1C [NHFIR0Y] Order #: [id number] FUTURE LIPID PANEL, NONFASTING [SQLIPNF] Order #: [id number] FUTURE Isosorbide Mononitrate 10 mg tabletTake 2 tablets by mouth two times a day.Disp: 360 tabletRfl: 1 Prescriptions as of 02/22/2025 - atorvastatin (LIPITOR) 80 mg tablet Take 1 tablet by mouth once daily. - dilTIAZem XR (DILACOR XR) 240 mg 24 hr capsule Take 1 capsule by mouth once daily. - finasteride (PROSCAR) 5 mg tablet Take 1 tablet by mouth once daily. - hydroCHLOROthiazide 25 mg tablet Take 1 tablet by mouth once daily. - metFORMIN ER (GLUCOPHAGE XR) 500 mg 24 hr tablet Take 1 tablet by mouth daily with breakfast. - metoprolol succinate ER (TOPROL XL) 25 mg 24 hr tablet Take 1.5 tablets by mouth once daily. Per [facility] - tamsulosin (FLOMAX) 0.4 mg Take 1 capsule by mouth once daily. - ammonium lactate (LAC-HYDRIN) 12 % cream Apply 1 application to affected area two times a day as needed. - Isosorbide Mononitrate 10 mg tablet Take 2 tablets by mouth two times a day. - clopidogrel (PLAVIX) 75 mg tablet Take 1 tablet by mouth once daily. - telmisartan (MICARDIS) 80 mg tablet Take 1 tablet by mouth once daily. - fluticasone (FLONASE) 50 mcg/actuation nasal spray Use 2 Sprays in each nostril once daily. Rinse mouth after use. - nitroglycerin sublingual (NITROQUICK) 0.4 mg SL tablet Dissolve under the tongue. UNDER TONGUE X 3 DOSES IF STILL HAVE CHEST PAIN SEEK EMERGENCY HELP - sodium chloride (SALINE MIST) 0.65 % nasal spray Use 1 Stella in the nose as needed for cold/allergy symptoms. - azelastine (ASTELIN) 0.1% nasal spray SPRAY 1 SPRAY INTO EACH NOSTRIL TWICE A DAY - blood sugar diagnostic (FREESTYLE LITE STRIPS) test strip Test blood sugar(s) one times daily. Dx: 250.00. Insulin: No - lancets (FREESTYLE LANCETS) 28 gauge misc Test blood sugar(s) 1 times daily. Dx: 250.00. Insulin: No - THERAPEUTIC MULTIVITAMIN TAB Take one(1) tablet daily. 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 Neoplasm of uncertain behavior of skin [D48.5] 11/01/2014 Urinary retention [R33.9] 12/03/2014 Coronary atherosclerosis due to lipid rich plaq*07/08/2015 Diabetic eye exam (HCC) [Z01.00, E11.9] 07/29/2015 Diverticulosis of large intestine [K57.30] 08/19/2015 Hx of colonic polyp [Z86.0100] 08/19/2015 Obstructive sleep apnea syndrome [G47.33] 11/06/2015 Well adult exam [Z00.00] 09/18/2016 01/12/2020 Type 2 diabetes mellitus without complication, *09/18/2016 Benign prostatic hyperplasia [N40.0] 09/18/2016 Obesity (BMI 35.0-39.9 without comorbidity) [E6*11/17/2016 08/25/2024 Acute right-sided low back pain with right-side*03/22/2017 Lumbar radiculopathy [M54.16] 03/22/2017 Medicare annual wellness visit, subsequent [Z00*09/21/2017 History of heart artery stent [Z95.5] 11/17/2017 Screening for colon cancer [Z12.11] 07/26/2018 Eczema [L30.9] 09/22/2018 Advance directive discussed with patient [Z71.8*02/11/[address] [Z78.9] 08/19/2022 Obesity, Class I, BMI 30-34.9 [E66.811] 02/24/2024 Obesity, Class II, BMI 35-39.9 [E66.812] 02/22/2025 Other instructions from your clinician: Screening schedule The following prevention plan is recommended: Diabetic Foot Exam due on 02/23/2025 WHAT YOU CAN DO TO PREVENT FALLS Many falls can be prevented. By making some changes, you can lower your chances of falling. Four things YOU can do to prevent falls for you* and your caregiver 1. Begin a regular exercise program Exercise is one of the most important ways to lower your chances of falling. It makes you stronger and helps you feel better. Exercises that improve balance and coordination (like Michael Chi) are the most helpful. Lack of exercise leads to weakness and increases your chances of falling. Ask your doctor or health care provider about the best type of exercise program for you. 2. Have your health care provider review your medicines Have your doctor or pharmacist review all the medicines you take, even zrzi-nkv-pyutiue medicines. As you get older, the way medicines work in your body can change. Some medicines, or combinations of medicines, can make you sleepy or dizzy and can cause you to fall. 3. Have your vision checked Have your eyes checked by an eye doctor at least once a year. You may be wearing the wrong glasses or have a condition like glaucoma or cataracts that limits your vision. Poor vision can increase your chances of falling. 4. Make your home safer About half of all falls happen at home. To make your home safer: Remove things you can trip over (like papers, books, clothes, and shoes) from stairs and places where you walk. Remove small throw rugs or use double-sided tape to keep the rugs from slipping. Keep items you use often in cabinets you can reach easily without using a step stool. Have grab bars put in next to your toilet and in the tub or shower. Use non-slip mats in the bathtub and on shower floors. Improve the lighting in your home. As you get older, you need brighter lights to see well. Hang light-weight curtains or shades to reduce glare. Have handrails and lights put in on all staircases. Wear shoes both inside and outside the house. Avoid going barefoot or wearing slippers. For more information, contact: Centers for Disease Control and Prevention www.cdc.gov/injury * This information may not apply if you have certain medical conditions. Prescriptions ordered this encounter Disp Refills Start End ATORVASTATIN 80 MG TABLET 90 t* 02/22/2025 Route: PO Sig: Take 1 tablet by mouth once daily. DILTIAZEM XR 240 MG CAP 90 c* 02/22/2025 Route: PO Sig: Take 1 capsule by mouth once daily. FINASTERIDE 5 MG TABLET 90 t* 1 02/22/2025 Route: PO Sig: Take 1 tablet by mouth once daily. HYDROCHLOROTHIAZIDE 25 MG TABLET 90 t* 1 02/22/2025 Route: PO Sig: Take 1 tablet by mouth once daily. METFORMIN ER 500 MG TABLET,EXTENDED * 90 t* 1 02/22/2025 Route: PO Sig: Take 1 tablet by mouth daily with breakfast. METOPROLOL SUCCINATE ER 25 MG TABLET* 135 * 3 02/22/2025 Route: PO Sig: Take 1.5 tablets by mouth once daily. Per [facility] TAMSULOSIN 0.4 MG CAPSULE 90 c* 1 02/22/2025 Route: PO Sig: Take 1 capsule by mouth once daily. AMMONIUM LACTATE 12 % TOPICAL CREAM 385 g 3 02/22/2025 02/22/2026 Route: TOP Sig: Apply 1 application to affected area two times a day as needed. ISOSORBIDE MONONITRATE 10 MG TABLET 180 * 1 02/22/2025 02/22/2025 Route: PO Sig: Take 1 tablet by mouth two times a day. ISOSORBIDE MONONITRATE 10 MG TABLET 360 * 1 02/22/2025 Route: PO Sig: Take 2 tablets by mouth two times a day. Medications Discontinued During This Encounter Prescriptions - isosorbide mononitrate (MONOKET) 20 mg tablet (Discontinued) Take 1 tablet by mouth two times a day. - ammonium lactate (LAC-HYDRIN) 12 % cream (Discontinued) Apply 1 application to affected area twice daily as needed. - metoprolol succinate ER (TOPROL XL) 25 mg 24 hr tablet (Discontinued) Take 1.5 tablets by mouth once daily. Per [facility] - atorvastatin (LIPITOR) 80 mg tablet (Discontinued) Take 1 tablet by mouth once daily. - dilTIAZem XR (DILACOR XR) 240 mg 24 hr capsule (Discontinued) Take 1 capsule by mouth once daily. - finasteride (PROSCAR) 5 mg tablet (Discontinued) Take 1 tablet by mouth once daily. - hydroCHLOROthiazide 25 mg tablet (Discontinued) Take 1 tablet by mouth once daily. - metFORMIN ER (GLUCOPHAGE XR) 500 mg 24 hr tablet (Discontinued) Take 1 tablet by mouth daily with breakfast. - tamsulosin (FLOMAX) 0.4 mg (Discontinued) Take 1 capsule by mouth once daily. - Isosorbide Mononitrate 10 mg tablet (Discontinued) Take 1 tablet by mouth two times a day. Disposition: Return in about 6 months (around 08/25/2025) for routine OV With dr. caruso. Follow-up and Disposition History for Encounter Date Provider Department Center 02/22/2025 [id number], RAYANNE FAMPWS [facility] Encounter Status:Closed by JESUS KLINE on 02/22/25 URINALYSIS COMPLETE PNL UR Collected: 02/12/2025 10:0 6 AM Status: F Source: [facility] Order Comment: Specimen Type : URINE SPECIMEN Ordering Facility: [facility] Address: [address] [place] [address] TYPE CODE TESTS RESULT OUT OF RANGE REFERENCE UNITS LAB 5778-6(LOINC) Color Ur Yellow Yellow LAB 67748-4(LOINC) Clarity Spec Clear Clear LAB 5792-7(LOINC) Glucose Ur Strip-mCnc Negative Negative LAB 5770-3(LOINC) Bilirub Ur Ql Strip Negative Negative LAB 2514-8(LOINC) Ketones Ur Strip Negative Negative LAB 5811-5(LOINC) Sp Gr Ur Strip 1.011 1.005-1.030 LAB 5794-3(LOINC) Hgb Ur Ql Strip Negative Negative LAB 5803-2(LOINC) pH Ur Strip 7.5 5.0-8.0 LAB 5804-0(LOINC) Prot Ur Strip-mCnc Negative Negative LAB 5818-0(LOINC) Urobilinogen Ur Strip 0.2 EU/dL 0.2-1.0 EU/dL LAB 5802-4(LOINC) Nitrite Ur Ql Strip Negative Negative LAB 5799-2(LOINC) Leukocyte esterase Ur Ql Strip Trace Abnormal Negative LAB 5821-4(LOINC) WBC #/area UrnS HPF 0-5 /HPF 0-5 /HPF LAB 36702-2(LOINC) RBC #/area UrnS HPF 0-2 /HPF 0-2 /HPF LAB 5769-5(LOINC) Bacteria #/area UrnS HPF Negative Negative /HPF LAB 5787-7(LOINC) Epi Cells #/area UrnS HPF None Seen /HPF LAB 5796-8(LOINC) Hyaline Casts #/area UrnS LPF 0 /LPF 0 /LPF Performed By: #### [id number] # ### [facility] CLIA [id number] [address] [place] [address] [place] ALBUMIN/CREATININE RATIO, URINE Collect ed: 02/12/2025 10:06 AM Status: F Source: [facility] Order Comment: Specimen Type : URINE SPECIMEN Ordering Facility: [facility] Address: [address] [place] [address] TYPE CODE TESTS RESULT OUT OF RANGE REFERENCE UNITS LAB 2161-8(LOINC) Creat Ur-mCnc 79.9 20.0-300.0 m g/dL LAB 46025-0(LOINC ) Microalbumin Ur-mCnc 13.0 mg/L LAB 9318-7(LOINC) Albumin/Creat Ur 16 <30 mg/g Result Comment: Adult Male a nd Female Nephrotic Criteria: <30 mg/g is considered normal to mildly increased 30-300 mg/g is considered moderately increased >300 mg/g is considered severely increased KDIGO. (2013). KDIGO 2012 Clinical Practice Guideline for the Evaluation and Management of Chronic Kidney Disease. Official Journal of the International Society of Nephrology, 3(1), 1-150. Performed By: #### UACR #### [facility] CLIA [id number] [address] [place] [address] [place] CBC W AUTO DIFF BLD Collected: 02/12/2025 9:[address] atus: F Source: [facility] Comment: Specimen Type : BLOOD SPECIMEN Ordering Facility: [facility] Address: [address] [place] [address] TYPE CODE TESTS RESULT OUT OF RANGE REFERENCE UNITS LAB 6690-2(LOINC) WBC # Bld Auto 5.93 3.70-11.00 k/uL LAB 789-8(LOINC) RBC # Bld Auto 4.71 4.20-6.00 m/ uL LAB 718-7(LOINC) Hgb Bld-mCnc 13.9 13.0-17.0 g/dL LAB 4544-3(LOINC) Hct VFr Bld Auto 42.3 39.0-51.0 % LAB 787-2([facility]) MCV RBC Auto 89.8 80.0-100.0 fL LAB 785-6([facility]) MCH RBC Qn Auto 29.5 26.0-34.0 p g LAB 786-4([facility]) MCHC RBC Auto-mCnc 32.9 30.5-36.0 g/dL LAB 37756-0([facility]) RDW RBC-Rto 13.6 11.5-15.0 % LAB 777-3([facility]) Platelet # Bld Auto 184 150-400 k/uL LAB 07871-9([facility]) PMV Bld Auto 10.9 9.0-12.7 fL LAB 770-8([facility]) Neutrophils/leuk NFr Bld Auto 66.1 % LAB 751-8([facility]) Neutrophils # Bld Auto 3.92 1.45-7.50 k/uL LAB 736-9([facility]) Lymphocytes/leuk NFr Bld Auto 20.1 % LAB 731-0([facility]) Lymphocytes # Bld Auto 1.19 1.00-4.00 k/uL LAB 5905-5([facility]) Monocytes/leuk NFr Bld Auto 10.6 % LAB 742-7([facility]) Monocytes # Bld Auto 0.63 <0.87 k/uL LAB 713-8([facility]) Eosinophil/leuk NFr Bld Auto 2.0 % LAB 711-2([facility]) Eosinophil # Bld Auto 0.12 <0.46 k/uL LAB 706-2([facility]) Basophils/leuk NFr Bld Auto 1.0 % LAB 704-7([facility]) Basophils # Bld Auto 0.06 <0.11 k/uL LAB 73161-7([facility]) Imm Granulocytes/conchita k NFr Bld Auto 0.2 % LAB 45525-1([facility]) Imm Granulocytes # Bld Auto <0.03 <0.10 k/uL LAB 72256-3([facility]) nRBC/100 WBC Bld-Rto 0.0 /100 WBC LAB 771-6([facility]) nRBC # Bld Auto <0.01 <0.01 k/u L LAB 14077-8([facility]) Differential method Bld Auto Performed By: #### [id number] # ### [facility] IA [id number] [address] [place] [address] DEPRECATED HGB A1C BLD Collected: 02/12 9:16 AM Status: F Source: [facility] Comment: Specimen Type : BLOOD SPECIMEN Ordering Facility: [facility] Address: [address] [place] [address] TYPE CODE TESTS RESULT OUT OF RANGE REFERENCE UNITS LAB 4548-4([facility]) HbA1c MFr Bld 6.0 High 4.3-5.6 % Result Comment: [place] [employer] Association guidelines indicate that patients with HgbA1c in the range 5.7-6.4% are at increased risk for development of diabetes, and intervention by lifestyle modification may be beneficial. HgbA1c greater or equal to 6.5% is considered diagnostic of diabetes. LAB 61502-8([facility]) Est. average glucose Bld gHb Est-mCnc 126 mg/dL Result Comment: eAG: (Estima yeimy average glucose) is a calculated value from HgbA1c and is bank representative of the average blood glucose level in the last 2-3 month period. Performed By: #### [id number] # ### [facility] IA [id number] [address] [place] [address] OF [facility] COMP METAB 2000 PNL SERPL Collected: 9:16 AM Status: F Source: [facility] Comment: Specimen Type : BLOOD SPECIMEN Ordering Facility: [facility] Address: [address] [place] [address] TYPE CODE TESTS RESULT OUT OF RANGE REFERENCE UNITS LAB 2885-2(LOINC) Prot SerPl-mCnc 6.4 6.3-8.0 g/dL LAB 1751-7(LOINC) Albumin SerPl-mCnc 3.7 Low 3.9-4.9 g/dL LAB 35953-1(LOINC) Calcium SerPl-mCnc 9.4 8.5-10.2 mg/dL LAB 1975-2(LOINC) Bilirub SerPl-mCnc 0.7 0.2-1.3 mg/dL LAB 6768-6(LOINC) ALP SerPl-cCnc 87 38-113 U/L LAB 1920-8(LOINC) AST SerPl-cCnc 20 14-40 U/L LAB 1742-6(LOINC) ALT SerPl-cCnc 20 10-54 U/L LAB 2345-7(LOINC) Glucose SerPl-mCnc 87 74-99 mg/dL Result Comment: The [place] Diabetes Association (ADA) provides guidance for cutoff values for fasting glucose and random glucose. The ADA defines fasting as no caloric intake for at least 8 hours. Fasting plasma glucose results between 100 to 125 mg/dL indicate increased risk for diabetes (prediabetes). Fasting plasma glucose results greater than or equal to 126 mg/dL meet the criteria for diagnosis of diabetes. In the absence of unequivocal hyperglycemia, results should be confirmed by repeat testing. In a patient with classic symptoms of hyperglycemia or hyperglycemic crisis, random plasma glucose results greater than or equal to 200 mg/dL meet the criteria for diagnosis of diabetes. Reference: Standards of Medical Care in Diabetes 2016, [place] Diabetes Association. Diabetes Care. 2016.39(Suppl 1). LAB 3094-0(LOINC) BUN SerPl-mCnc 7 Low 9-24 mg/dL LAB 2160-0(LOINC) Creat SerPl-mCnc 0.67 Low 0.73-1.22 mg/dL LAB 2951-2(LOINC) Sodium SerPl-sCnc 142 136-144 mmol/L LAB 2823-3(LOINC) Potassium SerPl-sCnc 4.1 3.7-5.1 mmol/L LAB 2075-0(LOINC) Chloride SerPl-sCnc 104 98-107 mmol/L LAB 2028-9(LOINC) CO2 SerPl-sCnc 27 22-30 mmol/L LAB 48126-2(LOINC) Anion Gap SerPl-sCnc 11 8-15 mmol/L LAB 93221-1(LOINC) eGFRcr SerPlBld CKD-EPI 2020 93 >=60 mL/min/1. 73m??? Result Comment: Estimated Gl omerular Filtration Rate (eGFR) is calculated using the 2020 CKD-EPI creatinine equation. This equation utilizes serum creatinine, sex, and age as parameters. The creatinine assay has traceable calibration to isotope dilution-mass spectrometry. Refer to KDIGO guidelines for clinical interpretation. In patients with unstable renal function, e.g. those with acute kidney injury, the eGFR may not accurately reflect actual GFR. Performed By: #### [id number], LIPNF #### [facility] CLIA [id number] [address] [place] [address] [place] [address] [facility] LIPID PANEL, NONFASTING Collected: 02/12/2025 9:16 AM Status: F Source: [facility] Order Comment: Specimen Type : BLOOD SPECIMEN Ordering Facility: [facility] Address: [address] [place] [address] TYPE CODE TESTS RESULT OUT OF RANGE REFERENCE UNITS LAB CHOLNF TOTAL CHOLESTEROL NF 119 <200 mg/dL Result Comment: <200 mg/dL, Desirable 200-239 mg/dL, Borderline high >239 mg/dL, High LAB TRIGNF TRIGLYCERIDES, NF 48 <150 mg/dL Result Comment: <150 mg/dL, Normal 150-199 mg/dL, Borderline high 200-499 mg/dL, High >499 mg/dL, Very high LAB HDLNF HDL CHOLESTEROL, NF 50 >39 mg/dL Result Comment: 40-59 mg/dL, Acceptable >59 mg/dL, High: Negative risk factor for coronary heart disease <40 mg/dL, Low: Positive risk factor for coronary heart disease LAB LDLNF LDL CHOLESTEROL CALCULATED, NF 58 <100 mg/dL Result Comment: <100 mg/dL, Optimal 100-129 mg/dL, Near optimal/above optimal 130-159 mg/dL, Borderline high 160-189 mg/dL, High >189 mg/dL, Very high Secondary prevention optimal LDL Cholesterol levels are recommended to be <70 mg/dL LDL cholesterol is calculated using the Mata-NIH equation. LAB NOHDLN NON HDL CHOL, NF 69 <130 mg/dL Result Comment: <130 mg/dL, Optimal 130-159 mg/dL, Near optimal/above optimal 160-189 mg/dL, Borderline high 190-219 mg/dL, High >219 mg/dL, Very high Secondary prevention optimal non HDL Cholesterol levels are recommended to be <100 mg/dL LAB VLDLNF VLDL CHOLESTEROL, NF 7 <30 mg/dL LAB TCHDLN T CHOL/HDL RATIO NF 2.38 <5.10 mg/dL LAB LDLHDN LDL/HDL RATIO, NF 1.16 <2.54 mg/dL Result Comment: Reference: 1. National Cholesterol Education Program ATP III Guideline At-A-Glance Quick Desk Reference: National Heart, Lung, and Blood [place]. National Institutes of Health. 2001: NIH Publication No. 01-3305. 2. An International Atherosclerosis Society position paper: global recommendations for the management of dyslipidemia: executive summary, Atherosclerosis. 2014: 232(2):410-413. Performed By: #### 62181-4, LIPNF #### [facility] CLIA [id number] [address] [place] [address] PROGRESS Observed: 11/27/2024 2:19 PM Status: COMPLETED Source: [facility] HNO ID: [id number] Author: TAMRA MARR LPN Service: ? Author Type: LICENSED NURSE Type: Progress Notes Filed: 11/27/2024 14:19 Note Text: Scan on 11/27/2024 12:16 PM by Tiffanie Valente PA-C: Stress Test PROGRESS Observed: 11/27/2024 12:07 PM Status: COMPLETED Source: [facility] HNO ID: [id number] Author: TAMRA MARR LPN Service: ? Author Type: LICENSED NURSE Type: Progress Notes Filed: 11/27/2024 12:07 Note Text: Scan on 11/27/2024 9:13 AM by Tiffanie Valente PA-C: Echo PROGRESS Observed: 10/27/2024 8:01 AM Status: COMPLETED Source: [facility] HNO ID: [id number] Author: TAMRA MARR LPN Service: ? Author Type: LICENSED NURSE Type: Progress Notes Filed: 10/27/2024 08:01 Note Text: Scan on 10/26/2024 1:44 PM by Tiffanie Valente PA-C: Consultation - Cardiology CNOV Observed: 08/25/2024 1:40 PM Status: COMPLETED Source: [facility] NADIA IBRAHIM ([id number]) 1940 M NFR Date Time Provider Department 08/25/24 1:40 PM JADA CARUSO During your visit today, we recorded the following information about you: Pulse Respiration Blood pressure Weight 60/minute 16/minute 120/70 95.3 kg Jada Caruso MD 08/25/2024 3:23 PM Signed Chief Complaint Patient presents with: F/U 6 months HPI Nadia Ibrahim is a 84 year old male who presents here today for 6 month follow up. Patient with hx of CAD, HTN, hyperlipidemia, ARLET, DM2, elevated PSA and those as below. Ref Range AND Units 4 d ago (08/21/24) 6 mo ago (02/14/24) 1 yr ago (08/16/23) 1 yr ago (02/08/23) 2 yr ago (08/10/22) 2 yr ago (02/02/22) 3 yr ago (07/24/21) Hemoglobin A1C 4.3 - 5.6 % 6.1 High 6.0 High CM 5.9 High CM 6.2 High CM 6.0 High CM 6.2 High CM 6.4 High Declined COVID. Patient has been doing well. No new issues or concerns. Has been chopping wood for his son who just had a 4 vessel CABG in [place]. Past medical history, appointments, medications, allergies reviewed. Previous Medical History PAST MEDICAL HISTORY Diagnosis Date Acute right-sided low back pain with right-sided sciatica 03/22/2017 Benign prostatic hyperplasia 09/18/2016 Complex renal cyst 08/31/2012 Coronary atherosclerosis due to lipid rich plaque 07/08/2015 Seeing Diabetic eye exam (HCC) 07/29/2015 Last done: 03/30/2018 No Retinopathy Diverticulosis of large intestine 08/19/2015 Eczema 09/22/2018 hands, thickened skin Elevated prostate specific antigen (PSA) 04/27/[address] Benavides Essential hypertension, benign History of heart artery stent 11/17/201710/2017: stent to Mid LAD Hx of colonic polyp 08/19/2015 Kidney stone 02/02/[address] 08/19/2022 DPA: 1st: Nadia Ibrahim,son 2nd: Adriano Ibrahim, son Lumbar radiculopathy 03/22/2017 Medicare annual wellness visit, subsequent 09/21/2017 Medicare Part B: 12/26/2008 last done: 09/22/2018 Mixed hyperlipidemia 10/16/2005 Neoplasm of uncertain behavior of skin 11/01/2014 multiple dark pigmented moles. 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 Burgos, repeat 3 yrs. COLONOSCOPY 03/06/2019 Dr. Burgos, repeat 10 yrs CORONARY ENDARTERCOMY OPEN ANY METHOD 1996 Angioplasty FINGER SURGERY HX Left 08/2021 left 3rd digit PAST SURGICAL HISTORY OF perirectal abscess PAST SURGICAL HISTORY OF 11/17/2017 Stent to Mid LAD RPR UMBILICAL HRNA 5 YRS/> REDUCIBLE 2013 Hernia repair, umbilical >5yr TOTAL KNEE REPLACEMENT 11/26/2014 right total knee Family History FAMILY HISTORY Problem Relation Age of Onset Cancer Father stomch ca. Coronary Artery Disease Father Colon Cancer Mother age 95 other (Other) Sister kidney stones other (Other) Brother kidney stones Patient Allergies ALLERGIES Allergen Reactions Clindamycin Swelling Throat swelling, heartburn Influenza Virus Vac* Unknown Got sick right away Lisinopril Cough Penicillins Rash Current Medications Current Outpatient Medications on File Prior to Visit Medication Sig isosorbide mononitrate (MONOKET) 20 mg tablet Take 1 tablet by mouth two times a day. telmisartan (MICARDIS) 80 mg tablet Take 1 tablet by mouth once daily. metoprolol succinate ER (TOPROL XL) 25 mg 24 hr tablet Take 1.5 tablets by mouth once daily. Per [facility] atorvastatin (LIPITOR) 80 mg tablet Take 1 tablet by mouth once daily. clopidogrel (PLAVIX) 75 mg tablet Take 1 tablet by mouth once daily. dilTIAZem XR (DILACOR XR) 240 mg 24 hr capsule Take 1 capsule by mouth once daily. finasteride (PROSCAR) 5 mg tablet Take 1 tablet by mouth once daily. fluticasone (FLONASE) 50 mcg/actuation nasal spray Use 2 Sprays in each nostril once daily. Rinse mouth after use. hydroCHLOROthiazide 25 mg tablet Take 1 tablet by mouth once daily. metFORMIN ER (GLUCOPHAGE XR) 500 mg 24 hr tablet Take 1 tablet by mouth daily with breakfast. nitroglycerin sublingual (NITROQUICK) 0.4 mg SL tablet Dissolve under the tongue. UNDER TONGUE X 3 DOSES IF STILL HAVE CHEST PAIN SEEK EMERGENCY HELP tamsulosin (FLOMAX) 0.4 mg Take 1 capsule by mouth once daily. loratadine (CLARITIN) 10 mg tablet Take 1 tablet by mouth once daily. sodium chloride (SALINE MIST) 0.65 % nasal spray Use 1 Stella in the nose as needed for cold/allergy symptoms. azelastine (ASTELIN) 0.1% nasal spray SPRAY 1 SPRAY INTO EACH NOSTRIL TWICE A DAY cyclobenzaprine (FLEXERIL) 10 mg tablet Take 0.5-1 tablets by mouth three times daily as needed for muscle spasm. blood sugar diagnostic (FREESTYLE LITE STRIPS) test strip Test blood sugar(s) one times daily. Dx: 250.00. Insulin: No lancets (FREESTYLE LANCETS) 28 gauge misc Test blood sugar(s) 1 times daily. Dx: 250.00. Insulin: No THERAPEUTIC MULTIVITAMIN TAB Take one(1) tablet daily. No current facility-administered medications on file prior to visit. Social History Social History Tobacco Use Smoking status: Never Smokeless tobacco: Current Types: Chew Tobacco comments: occassionaly Vaping Use Vaping status: Never Used Substance Use Topics Alcohol use: No Drug use: No Review of Symptoms REVIEW OF SYSTEMS GENERAL: No unintentional weight loss, malaise or fevers NECK: Negative for lumps, goiter, pain and significant neck swelling RESPIRATORY: Negative for cough, hemoptysis, wheezing, COPD, dyspnea or shortness of breath CARDIOVASCULAR: Negative for chest pain, leg swelling, hypertension, CHF or palpitations GI: No nausea, vomiting, or diarrhea and No heartburn or reflux symptoms : No history of dysuria, or blood ENDOCRINE: Negative for cold or heat intolerance, polyuria, polydipsia and goiter NEURO: No history of headaches, syncope, paralysis, seizures or tremors EXAM: BP 120/70 Pulse 60 Resp 16 Wt 95.3 kg (210 lb) BMI 33.55 kg/m? Last 5 Encounter Wt Readings: Date: Wt: 08/25/2024 95.3 kg (210 lb) 02/24/2024 97.5 kg (215 lb) 08/25/2023 96.2 kg (212 lb) 07/01/2023 96.8 kg (213 lb 6.4 oz) 05/28/2023 97 kg (213 lb 12.8 oz) General Appearance: Well appearing, alert, in no acute distress, well-hydrated, well nourished. and Obese. Eyes: Anicteric sclera. Pupils are equally round and reactive to light. Extraocular movements are intact. . Neck: Supple, no adenopathy; thyroid symmetric, normal size, no bruits. Lungs: Lungs clear to auscultation. No wheezing, rhonchi, rales.. Heart: RRR without murmur, gallop, or rubs. No ectopy. Abdomen: Normal abdominal exam, Abdomen soft, non-tender. Bowel sounds normal. No masses, organomegaly. Extremities: No deformities, edema, skin discoloration, Good capillary refill. . Musculoskeletal: Muscular strength intact, No joint swelling, deformity, or tenderness. Peripheral Pulses: Normal. Neurologic: Gait normal. Sensation to light touch and crainal nerves 2-12 intact.. Health Maintenance List DTaP,Tdap,Td Vaccine(2 - Td or Tdap) due on 12/10/2016 RSV Vaccine(1 - 1-dose 75+ series) Never done Shingrix Vaccine(2 of 2) due on 03/21/2020 Covid-19 Vaccine( season) due on 02/27/2024 Advance Directive Discussion due on 06/28/2024 Urine Albumin:Creatinine Ratio due on 02/13/2025 HbA1C due on 02/18/2025 Diabetic Foot Exam due on 02/23/2025 Depression Screening due on 02/23/2025 Anxiety Screening due on 02/23/2025 Dilated Retinal Exam due on 04/26/2025 LDL Cholesterol due on 08/21/2025 Pneumococcal Vaccine: 50+ Completed Influenza Vaccine Discontinued Colorectal Cancer Screening Discontinued Data reviewed Latest Ref Rng 02/14/2024 08/21/2024 Protein, Total 6.3 - 8.0 g/dL 6.3 Albumin 3.9 - 4.9 g/dL 3.9 Calcium 8.5 - 10.2 mg/dL 9.1 Bilirubin, Total 0.2 - 1.3 mg/dL 0.7 Alkaline Phosphatase 38 - 113 U/L 93 AST 14 - 40 U/L 24 ALT 10 - 54 U/L 18 Glucose 74 - 99 mg/dL 92 BUN 9 - 24 mg/dL 6 (L) Creatinine 0.73 - 1.22 mg/dL 0.66 (L) Sodium 136 - 144 mmol/L 138 Potassium 3.7 - 5.1 mmol/L 4.5 Chloride 98 - 107 mmol/L 100 CO2 22 - 30 mmol/L 28 Anion Gap 8 - 15 mmol/L 10 eGFR >=60 mL/min/1.73m? 94 Total Cholesterol, Nonfasting <200 mg/dL 112 124 Triglycerides, Nonfasting <150 mg/dL 39 46 HDL Cholesterol, Nonfasting >39 mg/dL 52 58 LDL Cholesterol, Nonfasting <100 mg/dL 52 57 Non HDL Cholesterol, Nonfasting <130 mg/dL 60 66 VLDL Cholesterol, Nonfasting <30 mg/dL 8 9 Total Chol/HDL Ratio, Nonfasting <5.10 mg/dL 2.15 2.14 LDL/HDL Ratio, Nonfasting <2.54 mg/dL 1.00 0.98 Hemoglobin A1C 4.3 - 5.6 % 6.0 (H) 6.1 (H) Estimated Average Glucose mg/dL 126 128 A/P ASSESSMENT/PLAN: 1. Type 2 diabetes mellitus without complication, without long-term current use of insulin (HCC) - ICD9: 250.00, ICD10: E11.9 (primary diagnosis) - Controlled - Continue current medications - Counseled on healthy diet and regular exercise - Discussed need for and benefit of weight loss. BMI 33.55 kg/(m2) - METFORMIN ER 500 MG TABLET,EXTENDED RELEASE 24 HR 2. Diabetic eye exam (HCC) - ICD9: V72.0, 250.00, ICD10: Z01.00, E11.9 - up to date 3. Essential hypertension, benign - ICD9: 401.1, ICD10: I10 - Controlled - Continue current medications - Recommend home blood pressure monitoring, to bring results to next visit - Encouraged sodium restriction, DASH or Mediterranean diet - Recommend regular aerobic exercise - Discussed need for and benefit of weight loss. BMI 33.55 kg/(m2) - DILTIAZEM XR 240 MG CAP - HYDROCHLOROTHIAZIDE 25 MG TABLET 4. Mixed hyperlipidemia - ICD9: 272.2, ICD10: E78.2 - Controlled - Continue current medications - Counseled on healthy diet and regular exercise - Discussed need for and benefit of weight loss. BMI 33.55 kg/(m2) - ATORVASTATIN 80 MG TABLET 5. Coronary atherosclerosis due to lipid rich plaque - ICD9: 414.3, ICD10: I25.83 - clinically stable. Follows with cardio. No changes. Cont - CLOPIDOGREL 75 MG TABLET 6. Benign prostatic hyperplasia, unspecified whether lower urinary tract symptoms present - ICD9: 600.00, ICD10: N40.0 Cont - FINASTERIDE 5 MG TABLET - TAMSULOSIN 0.4 MG CAPSULE 7. Seasonal allergies - ICD9: 477.9, ICD10: J30.2 Cont - FLUTICASONE PROPIONATE 50 MCG/ACTUATION NASAL SPRAY,SUSPENSION 8. Obstructive sleep apnea syndrome - ICD9: 327.23, ICD10: G47.33 - continues to benefit with nightly use of CPAP 9. Obesity, Class I, BMI 30-34.9 - ICD9: 278.00, ICD10: E66.811 - patient losing weight slowly. - encouraged to continue to work on this. 10. Advance directive discussed with patient - ICD9: V65.49, ICD10: Z71.89 - up to date. F/u 6 months extensive. Check CMP, Lipid, UA, A1c, urine micro albumin, CBC prior MD Kirby Chiu Jeffrey A, MD 08/25/2024 1:46 PM Addendum Consider getting the shingrix vaccine for the prevention of shingles from a local pharmacy along with the RSV vaccine and a Tdap to update your tetanus. Please get labs done on or after 02/09/2925 prior to your next visit. Allergies As of Date: 08/25/2024 Noted Allergy Reaction CLINDAMYCIN 09/21/2017 7 - Swelling Comments: Throat swelling, heartburn INFLUENZA VIRUS VACCINES 05/28/2023 16 - Unknown Comments: Got sick right away LISINOPRIL 12/23/2007 3 - Cough PENICILLINS 04/17/2005 2 - Rash Date Reviewed: 08/25/2024 Reviewed by: Jada Caruso MD - Fully Assessed Reason for Visit: F/U 6 months [1177] Primary Visit Diagnosis:Type 2 diabetes mellitus without complication, without long-term current use of insulin (HCC) [E11.9] Other Visit Diagnoses:Diabetic eye exam (HCC) [Z01.00, E11.9] Essential hypertension, benign [I10] Mixed hyperlipidemia [E78.2] Coronary atherosclerosis due to lipid rich plaque [I25.83] Benign prostatic hyperplasia, unspecified whether lower urinary tract symptoms present [N40.0] Seasonal allergies [J30.2] Obstructive sleep apnea syndrome [G47.33] Obesity, Class I, BMI 30-34.9 [E66.811] Advance directive discussed with patient [Z61.89] Order(s):atorvastatin (LIPITOR) 80 mg tabletTake 1 tablet by mouth once daily.Disp: 90 tabletRfl: 1 clopidogrel (PLAVIX) 75 mg tabletTake 1 tablet by mouth once daily.Disp: 30 tabletRfl: 5 dilTIAZem XR (DILACOR XR) 240 mg 24 hr capsuleTake 1 capsule by mouth once daily.Disp: 90 capsuleRfl: 1 finasteride (PROSCAR) 5 mg tabletTake 1 tablet by mouth once daily.Disp: 90 tabletRfl: 1 fluticasone (FLONASE) 50 mcg/actuation nasal sprayUse 2 Sprays in each nostril once daily. Rinse mouth after use.Disp: 48 mLRfl: 1 hydroCHLOROthiazide 25 mg tabletTake 1 tablet by mouth once daily.Disp: 90 tabletRfl: 1 metFORMIN ER (GLUCOPHAGE XR) 500 mg 24 hr tabletTake 1 tablet by mouth daily with breakfast.Disp: 90 tabletRfl: 1 tamsulosin (FLOMAX) 0.4 mgTake 1 capsule by mouth once daily.Disp: 90 capsuleRfl: 1 ADVANCE CARE PLAN DISCUSSION [[id number]] Order #: [id number]: 1 ALBUMIN/CREATININE RATIO, URINE [SQUACR] Order #: [id number] FUTURE COMPREHENSIVE METABOLIC PANEL [SQCMP] Order #: [id number] FUTURE HEMOGLOBIN A1C [ZYSKP6R] Order #: [id number] FUTURE URINALYSIS, WITH MICROSCOPIC [SQUAWMIC] Order #: [id number] FUTURE LIPID PANEL, NONFASTING [SQLIPNF] Order #: [id number] FUTURE COMPLETE BLOOD COUNT AND DIFFERENTIAL [SQCBCDIF] Order #: [id number] FUTURE Prescriptions as of 08/25/2024 - atorvastatin (LIPITOR) 80 mg tablet Take 1 tablet by mouth once daily. - clopidogrel (PLAVIX) 75 mg tablet Take 1 tablet by mouth once daily. - dilTIAZem XR (DILACOR XR) 240 mg 24 hr capsule Take 1 capsule by mouth once daily. - finasteride (PROSCAR) 5 mg tablet Take 1 tablet by mouth once daily. - fluticasone (FLONASE) 50 mcg/actuation nasal spray Use 2 Sprays in each nostril once daily. Rinse mouth after use. - hydroCHLOROthiazide 25 mg tablet Take 1 tablet by mouth once daily. - metFORMIN ER (GLUCOPHAGE XR) 500 mg 24 hr tablet Take 1 tablet by mouth daily with breakfast. - tamsulosin (FLOMAX) 0.4 mg Take 1 capsule by mouth once daily. - isosorbide mononitrate (MONOKET) 20 mg tablet Take 1 tablet by mouth two times a day. - telmisartan (MICARDIS) 80 mg tablet Take 1 tablet by mouth once daily. - metoprolol succinate ER (TOPROL XL) 25 mg 24 hr tablet Take 1.5 tablets by mouth once daily. Per [facility] - nitroglycerin sublingual (NITROQUICK) 0.4 mg SL tablet Dissolve under the tongue. UNDER TONGUE X 3 DOSES IF STILL HAVE CHEST PAIN SEEK EMERGENCY HELP - sodium chloride (SALINE MIST) 0.65 % nasal spray Use 1 Stella in the nose as needed for cold/allergy symptoms. - azelastine (ASTELIN) 0.1% nasal spray SPRAY 1 SPRAY INTO EACH NOSTRIL TWICE A DAY - blood sugar diagnostic (FREESTYLE LITE STRIPS) test strip Test blood sugar(s) one times daily. Dx: 250.00. Insulin: No - lancets (FREESTYLE LANCETS) 28 gauge misc Test blood sugar(s) 1 times daily. Dx: 250.00. Insulin: No - THERAPEUTIC MULTIVITAMIN TAB Take one(1) tablet daily. Problem List As Of Date 08/25/2024 Noted Resolved Essential hypertension, benign [I10] 10/16/2005 Mixed hyperlipidemia [E78.2] 10/16/2005 Elevated prostate specific antigen (PSA) [R97.2*04/27/2007 Unspecified arthropathy, lower leg [M17.10] 01/25/2009 Kidney stone [N20.0] 02/02/2012 Complex renal cyst [N28.1] 08/31/2012 Prostatic intraepithelial neoplasia [N42.31] 08/31/2012 Neoplasm of uncertain behavior of skin [D48.5] 11/01/2014 Urinary retention [R33.9] 12/03/2014 Coronary atherosclerosis due to lipid rich plaq*07/08/2015 Diabetic eye exam (HCC) [Z01.00, E11.9] 07/29/2015 Diverticulosis of large intestine [K57.30] 08/19/2015 Hx of colonic polyp [Z86.0100] 08/19/2015 Obstructive sleep apnea syndrome [G47.33] 11/06/2015 Well adult exam [Z00.00] 09/18/2016 01/12/2020 Type 2 diabetes mellitus without complication, *09/18/2016 Benign prostatic hyperplasia [N40.0] 09/18/2016 Obesity (BMI 35.0-39.9 without comorbidity) [E6*11/17/2016 08/25/2024 Acute right-sided low back pain with right-side*03/22/2017 Lumbar radiculopathy [M54.16] 03/22/2017 Medicare annual wellness visit, subsequent [Z00*09/21/2017 History of heart artery stent [Z95.5] 11/17/2017 Screening for colon cancer [Z12.11] 07/26/2018 Eczema [L30.9] 09/22/2018 Advance directive discussed with patient [Z71.8*02/11/[address] [Z78.9] 08/19/2022 Obesity, Class I, BMI 30-34.9 [E66.811] 02/24/2024 Other instructions from your clinician: Consider getting the shingrix vaccine for the prevention of shingles from a local pharmacy along with the RSV vaccine and a Tdap to update your tetanus. Please get labs done on or after 02/09/2925 prior to your next visit. Prescriptions ordered this encounter Disp Refills Start End ATORVASTATIN 80 MG TABLET 90 t* 1 08/25/2024 Route: ORAL Sig: Take 1 tablet by mouth once daily. CLOPIDOGREL 75 MG TABLET 30 t* 5 08/25/2024 Route: ORAL Sig: Take 1 tablet by mouth once daily. DILTIAZEM XR 240 MG CAP 90 c* 1 08/25/2024 Route: ORAL Sig: Take 1 capsule by mouth once daily. FINASTERIDE 5 MG TABLET 90 t* 1 08/25/2024 Route: ORAL Sig: Take 1 tablet by mouth once daily. FLUTICASONE PROPIONATE 50 MCG/ACTUAT* 48 mL 1 08/25/2024 Route: EACH NOSTRIL Sig: Use 2 Sprays in each nostril once daily. Rinse mouth after use. HYDROCHLOROTHIAZIDE 25 MG TABLET 90 t* 1 08/25/2024 Route: ORAL Sig: Take 1 tablet by mouth once daily. METFORMIN ER 500 MG TABLET,EXTENDED * 90 t* 1 08/25/2024 Route: ORAL Sig: Take 1 tablet by mouth daily with breakfast. TAMSULOSIN 0.4 MG CAPSULE 90 c* 1 08/25/2024 Route: ORAL Sig: Take 1 capsule by mouth once daily. Medications Discontinued During This Encounter Prescriptions - cyclobenzaprine (FLEXERIL) 10 mg tablet (Discontinued) Reported on 08/25/2024 - loratadine (CLARITIN) 10 mg tablet (Discontinued) Reported on 08/25/2024 - atorvastatin (LIPITOR) 80 mg tablet (Discontinued) Take 1 tablet by mouth once daily. - clopidogrel (PLAVIX) 75 mg tablet (Discontinued) Take 1 tablet by mouth once daily. - dilTIAZem XR (DILACOR XR) 240 mg 24 hr capsule (Discontinued) Take 1 capsule by mouth once daily. - finasteride (PROSCAR) 5 mg tablet (Discontinued) Take 1 tablet by mouth once daily. - fluticasone (FLONASE) 50 mcg/actuation nasal spray (Discontinued) Use 2 Sprays in each nostril once daily. Rinse mouth after use. - hydroCHLOROthiazide 25 mg tablet (Discontinued) Take 1 tablet by mouth once daily. - metFORMIN ER (GLUCOPHAGE XR) 500 mg 24 hr tablet (Discontinued) Take 1 tablet by mouth daily with breakfast. - tamsulosin (FLOMAX) 0.4 mg (Discontinued) Take 1 capsule by mouth once daily. Disposition: Return in about 6 months (around 02/22/2025) for extensive medicare wellness 40 min with Jesus. Follow-up and Disposition History for Encounter Date Provider Department Center 08/25/2024 [id number] CARUSO Juan Carlos [facility] Encounter Status:Closed by JADA CARUSO on 08/25/24 PROGRESS Observed: 08/25/2024 1:20 PM Status: COMPLETED Source: [facility] ID: [id number] Author: JADA CARUSO MD Service: ? Author Type: Physician Type: Progress Notes Filed: 08/25/2024 15:23 Note Text: Chief Complaint Patient presents with: F/U 6 months HPI Nadia Ibrahim is a 84 year old male who presents here today for 6 month follow up. Patient with hx of CAD, HTN, hyperlipidemia, ARLET, DM2, elevated PSA and those as below. Ref Range AND Units 4 d ago (08/21/24) 6 mo ago (02/14/24) 1 yr ago (08/16/23) 1 yr ago (02/08/23) 2 yr ago (08/10/22) 2 yr ago (02/02/22) 3 yr ago (07/24/21) Hemoglobin A1C 4.3 - 5.6 % 6.1 High 6.0 High CM 5.9 High CM 6.2 High CM 6.0 High CM 6.2 High CM 6.4 High Declined COVID. Patient has been doing well. No new issues or concerns. Has been chopping wood for his son who just had a 4 vessel CABG in [place]. Past medical history, appointments, medications, allergies reviewed. Previous Medical History PAST MEDICAL HISTORY Diagnosis Date Acute right-sided low back pain with right-sided sciatica 03/22/2017 Benign prostatic hyperplasia 09/18/2016 Complex renal cyst 08/31/2012 Coronary atherosclerosis due to lipid rich plaque 07/08/2015 Seeing Diabetic eye exam (HCC) 07/29/2015 Last done: 03/30/2018 No Retinopathy Diverticulosis of large intestine 08/19/2015 Eczema 09/22/2018 hands, thickened skin Elevated prostate specific antigen (PSA) 04/27/[address] Benavides Essential hypertension, benign History of heart artery stent 11/17/201710/2017: stent to Mid LAD Hx of colonic polyp 08/19/2015 Kidney stone 02/02/[address] 08/19/2022 DPA: 1st: Nadia Ibrahim,son 2nd: Adriano Ibrahim, son Lumbar radiculopathy 03/22/2017 Medicare annual wellness visit, subsequent 09/21/2017 Medicare Part B: 12/26/2008 last done: 09/22/2018 Mixed hyperlipidemia 10/16/2005 Neoplasm of uncertain behavior of skin 11/01/2014 multiple dark pigmented moles. 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 Burgos, repeat 3 yrs. COLONOSCOPY 03/06/2019 Dr. Burgos, repeat 10 yrs CORONARY ENDARTERCOMY OPEN ANY METHOD 1996 Angioplasty FINGER SURGERY HX Left 08/2021 left 3rd digit PAST SURGICAL HISTORY OF perirectal abscess PAST SURGICAL HISTORY OF 11/17/2017 Stent to Mid LAD RPR UMBILICAL HRNA 5 YRS/> REDUCIBLE 2013 Hernia repair, umbilical >5yr TOTAL KNEE REPLACEMENT 11/26/2014 right total knee Family History FAMILY HISTORY Problem Relation Age of Onset Cancer Father stomch ca. Coronary Artery Disease Father Colon Cancer Mother age 95 other (Other) Sister kidney stones other (Other) Brother kidney stones Patient Allergies ALLERGIES Allergen Reactions Clindamycin Swelling Throat swelling, heartburn Influenza Virus Vac* Unknown Got sick right away Lisinopril Cough Penicillins Rash Current Medications Current Outpatient Medications on File Prior to Visit Medication Sig isosorbide mononitrate (MONOKET) 20 mg tablet Take 1 tablet by mouth two times a day. telmisartan (MICARDIS) 80 mg tablet Take 1 tablet by mouth once daily. metoprolol succinate ER (TOPROL XL) 25 mg 24 hr tablet Take 1.5 tablets by mouth once daily. Per [facility] atorvastatin (LIPITOR) 80 mg tablet Take 1 tablet by mouth once daily. clopidogrel (PLAVIX) 75 mg tablet Take 1 tablet by mouth once daily. dilTIAZem XR (DILACOR XR) 240 mg 24 hr capsule Take 1 capsule by mouth once daily. finasteride (PROSCAR) 5 mg tablet Take 1 tablet by mouth once daily. fluticasone (FLONASE) 50 mcg/actuation nasal spray Use 2 Sprays in each nostril once daily. Rinse mouth after use. hydroCHLOROthiazide 25 mg tablet Take 1 tablet by mouth once daily. metFORMIN ER (GLUCOPHAGE XR) 500 mg 24 hr tablet Take 1 tablet by mouth daily with breakfast. nitroglycerin sublingual (NITROQUICK) 0.4 mg SL tablet Dissolve under the tongue. UNDER TONGUE X 3 DOSES IF STILL HAVE CHEST PAIN SEEK EMERGENCY HELP tamsulosin (FLOMAX) 0.4 mg Take 1 capsule by mouth once daily. loratadine (CLARITIN) 10 mg tablet Take 1 tablet by mouth once daily. sodium chloride (SALINE MIST) 0.65 % nasal spray Use 1 Stella in the nose as needed for cold/allergy symptoms. azelastine (ASTELIN) 0.1% nasal spray SPRAY 1 SPRAY INTO EACH NOSTRIL TWICE A DAY cyclobenzaprine (FLEXERIL) 10 mg tablet Take 0.5-1 tablets by mouth three times daily as needed for muscle spasm. blood sugar diagnostic (FREESTYLE LITE STRIPS) test strip Test blood sugar(s) one times daily. Dx: 250.00. Insulin: No lancets (FREESTYLE LANCETS) 28 gauge misc Test blood sugar(s) 1 times daily. Dx: 250.00. Insulin: No THERAPEUTIC MULTIVITAMIN TAB Take one(1) tablet daily. No current facility-administered medications on file prior to visit. Social History Social History Tobacco Use Smoking status: Never Smokeless tobacco: Current Types: Chew Tobacco comments: occassionaly Vaping Use Vaping status: Never Used Substance Use Topics Alcohol use: No Drug use: No Review of Symptoms REVIEW OF SYSTEMS GENERAL: No unintentional weight loss, malaise or fevers NECK: Negative for lumps, goiter, pain and significant neck swelling RESPIRATORY: Negative for cough, hemoptysis, wheezing, COPD, dyspnea or shortness of breath CARDIOVASCULAR: Negative for chest pain, leg swelling, hypertension, CHF or palpitations GI: No nausea, vomiting, or diarrhea and No heartburn or reflux symptoms : No history of dysuria, or blood ENDOCRINE: Negative for cold or heat intolerance, polyuria, polydipsia and goiter NEURO: No history of headaches, syncope, paralysis, seizures or tremors EXAM: BP 120/70 Pulse 60 Resp 16 Wt 95.3 kg (210 lb) BMI 33.55 kg/m? Last 5 Encounter Wt Readings: Date: Wt: 08/25/2024 95.3 kg (210 lb) 02/24/2024 97.5 kg (215 lb) 08/25/2023 96.2 kg (212 lb) 07/01/2023 96.8 kg (213 lb 6.4 oz) 05/28/2023 97 kg (213 lb 12.8 oz) General Appearance: Well appearing, alert, in no acute distress, well-hydrated, well nourished. and Obese. Eyes: Anicteric sclera. Pupils are equally round and reactive to light. Extraocular movements are intact. . Neck: Supple, no adenopathy; thyroid symmetric, normal size, no bruits. Lungs: Lungs clear to auscultation. No wheezing, rhonchi, rales.. Heart: RRR without murmur, gallop, or rubs. No ectopy. Abdomen: Normal abdominal exam, Abdomen soft, non-tender. Bowel sounds normal. No masses, organomegaly. Extremities: No deformities, edema, skin discoloration, Good capillary refill. . Musculoskeletal: Muscular strength intact, No joint swelling, deformity, or tenderness. Peripheral Pulses: Normal. Neurologic: Gait normal. Sensation to light touch and crainal nerves 2-12 intact.. Health Maintenance List DTaP,Tdap,Td Vaccine(2 - Td or Tdap) due on 12/10/2016 RSV Vaccine(1 - 1-dose 75+ series) Never done Shingrix Vaccine(2 of 2) due on 03/21/2020 Covid-19 Vaccine( season) due on 02/27/2024 Advance Directive Discussion due on 06/28/2024 Urine Albumin:Creatinine Ratio due on 02/13/2025 HbA1C due on 02/18/2025 Diabetic Foot Exam due on 02/23/2025 Depression Screening due on 02/23/2025 Anxiety Screening due on 02/23/2025 Dilated Retinal Exam due on 04/26/2025 LDL Cholesterol due on 08/21/2025 Pneumococcal Vaccine: 50+ Completed Influenza Vaccine Discontinued Colorectal Cancer Screening Discontinued Data reviewed Latest Ref Rng 02/14/2024 08/21/2024 Protein, Total 6.3 - 8.0 g/dL 6.3 Albumin 3.9 - 4.9 g/dL 3.9 Calcium 8.5 - 10.2 mg/dL 9.1 Bilirubin, Total 0.2 - 1.3 mg/dL 0.7 Alkaline Phosphatase 38 - 113 U/L 93 AST 14 - 40 U/L 24 ALT 10 - 54 U/L 18 Glucose 74 - 99 mg/dL 92 BUN 9 - 24 mg/dL 6 (L) Creatinine 0.73 - 1.22 mg/dL 0.66 (L) Sodium 136 - 144 mmol/L 138 Potassium 3.7 - 5.1 mmol/L 4.5 Chloride 98 - 107 mmol/L 100 CO2 22 - 30 mmol/L 28 Anion Gap 8 - 15 mmol/L 10 eGFR >=60 mL/min/1.73m? 94 Total Cholesterol, Nonfasting <200 mg/dL 112 124 Triglycerides, Nonfasting <150 mg/dL 39 46 HDL Cholesterol, Nonfasting >39 mg/dL 52 58 LDL Cholesterol, Nonfasting <100 mg/dL 52 57 Non HDL Cholesterol, Nonfasting <130 mg/dL 60 66 VLDL Cholesterol, Nonfasting <30 mg/dL 8 9 Total Chol/HDL Ratio, Nonfasting <5.10 mg/dL 2.15 2.14 LDL/HDL Ratio, Nonfasting <2.54 mg/dL 1.00 0.98 Hemoglobin A1C 4.3 - 5.6 % 6.0 (H) 6.1 (H) Estimated Average Glucose mg/dL 126 128 A/P ASSESSMENT/PLAN: 1. Type 2 diabetes mellitus without complication, without long-term current use of insulin (HCC) - ICD9: 250.00, ICD10: E11.9 (primary diagnosis) - Controlled - Continue current medications - Counseled on healthy diet and regular exercise - Discussed need for and benefit of weight loss. BMI 33.55 kg/(m2) - METFORMIN ER 500 MG TABLET,EXTENDED RELEASE 24 HR 2. Diabetic eye exam (HCC) - ICD9: V72.0, 250.00, ICD10: Z01.00, E11.9 - up to date 3. Essential hypertension, benign - ICD9: 401.1, ICD10: I10 - Controlled - Continue current medications - Recommend home blood pressure monitoring, to bring results to next visit - Encouraged sodium restriction, DASH or Mediterranean diet - Recommend regular aerobic exercise - Discussed need for and benefit of weight loss. BMI 33.55 kg/(m2) - DILTIAZEM XR 240 MG CAP - HYDROCHLOROTHIAZIDE 25 MG TABLET 4. Mixed hyperlipidemia - ICD9: 272.2, ICD10: E78.2 - Controlled - Continue current medications - Counseled on healthy diet and regular exercise - Discussed need for and benefit of weight loss. BMI 33.55 kg/(m2) - ATORVASTATIN 80 MG TABLET 5. Coronary atherosclerosis due to lipid rich plaque - ICD9: 414.3, ICD10: I25.83 - clinically stable. Follows with cardio. No changes. Cont - CLOPIDOGREL 75 MG TABLET 6. Benign prostatic hyperplasia, unspecified whether lower urinary tract symptoms present - ICD9: 600.00, ICD10: N40.0 Cont - FINASTERIDE 5 MG TABLET - TAMSULOSIN 0.4 MG CAPSULE 7. Seasonal allergies - ICD9: 477.9, ICD10: J30.2 Cont - FLUTICASONE PROPIONATE 50 MCG/ACTUATION NASAL SPRAY,SUSPENSION 8. Obstructive sleep apnea syndrome - ICD9: 327.23, ICD10: G47.33 - continues to benefit with nightly use of CPAP 9. Obesity, Class I, BMI 30-34.9 - ICD9: 278.00, ICD10: E66.811 - patient losing weight slowly. - encouraged to continue to work on this. 10. Advance directive discussed with patient - ICD9: V65.49, ICD10: Z71.89 - up to date. F/u 6 months extensive. Check CMP, Lipid, UA, A1c, urine micro albumin, CBC prior Jada Caruso MD LIPID PANEL, NONFASTING Collected: 08/21/2024 9:26 AM Status: F Source: [facility] Order Comment: Specimen Type : BLOOD SPECIMEN Ordering Facility: [facility] Address: [place] [address] TYPE CODE TESTS RESULT OUT OF RANGE REFERENCE UNITS LAB CHOLNF TOTAL CHOLESTEROL NF 124 <200 mg/dL Result Comment: <200 mg/dL, Desirable 200-239 mg/dL, Borderline high >239 mg/dL, High LAB TRIGNF TRIGLYCERIDES, NF 46 <150 mg/dL Result Comment: <150 mg/dL, Normal 150-199 mg/dL, Borderline high 200-499 mg/dL, High >499 mg/dL, Very high LAB HDLNF HDL CHOLESTEROL, NF 58 >39 mg/dL Result Comment: 40-59 mg/dL, Acceptable >59 mg/dL, High: Negative risk factor for coronary heart disease <40 mg/dL, Low: Positive risk factor for coronary heart disease LAB LDLNF LDL CHOLESTEROL, NF 57 <100 mg/dL Result Comment: <100 mg/dL, Optimal 100-129 mg/dL, Near optimal/above optimal 130-159 mg/dL, Borderline high 160-189 mg/dL, High >189 mg/dL, Very high Secondary prevention optimal LDL Cholesterol levels are recommended to be < 70 mg/dL LAB NOHDLN NON HDL CHOL, NF 66 <130 mg/dL Result Comment: <130 mg/dL, Optimal 130-159 mg/dL, Near optimal/above optimal 160-189 mg/dL, Borderline high 190-219 mg/dL, High >219 mg/dL, Very high Secondary prevention optimal non HDL Cholesterol levels are recommended to be <100 mg/dL LAB VLDLNF VLDL CHOLESTEROL, NF 9 <30 mg/dL LAB TCHDLN T CHOL/HDL RATIO NF 2.14 <5.10 mg/dL LAB LDLHDN LDL/HDL RATIO, NF 0.98 <2.54 mg/dL Result Comment: Reference: 1. National Cholesterol Education Program ATP III Guideline At-A-Glance Quick Desk Reference: National Heart, Lung, and Blood [place]. National Institutes of Health. 2001: NIH Publication No. 01-3305. 2. An International Atherosclerosis Society position paper: global recommendations for the management of dyslipidemia: executive summary, Atherosclerosis. 2014: 232(2):410-413. Performed By: #### LIPNF ### # [facility] CLIA [id number] [address] [place], [place] [address] [address] [place] DEPRECATED HGB A1C BLD Collected: 08/21 9:26 AM Status: F Source: [facility] Order Comment: Specimen Type : BLOOD SPECIMEN Ordering Facility: [facility] Address: [address] [place] [address] TYPE CODE TESTS RESULT OUT OF RANGE REFERENCE UNITS LAB 4548-4(LOINC) HbA1c MFr Bld 6.1 High 4.3-5.6 % Result Comment: [place] betes Association guidelines indicate that patients with HgbA1c in the range 5.7-6.4% are at increased risk for development of diabetes, and intervention by lifestyle modification may be beneficial. HgbA1c greater or equal to 6.5% is considered diagnostic of diabetes. LAB 14191-7(INC) Est. average glucose Bld gHb Est-mCnc 128 mg/dL Result Comment: eAG: (Estima yeimy average glucose) is a calculated value from HgbA1c and is bank representative of the average blood glucose level in the last 2-3 month period. Performed By: #### [id number] # ### [facility] CLIA [id number] [address] [place], [place] [address] [address] [place] CNPN Observed: 08/21/2024 12:00 AM Status: COMPLETED Source: [facility] Telephone ([facility]) NADIA IBRAHIM ([id number]) 1940 M NFR Date Time Provider Department 08/21/24 ROWDY MORALES During your visit today, we recorded the following information about you: Rowdy Morales MA 08/21/2024 9:15 AM Signed Patient is scheduled 08/25/2024 for his physical but no orders were placed from last visit. Patient is here now for labs. Rowdy Morales MA Please team Jessica Lee when orders have been placed. Allergies As of Date: 08/21/2024 Noted Allergy Reaction CLINDAMYCIN 09/21/2017 7 - Swelling Comments: Throat swelling, heartburn INFLUENZA VIRUS VACCINES 05/28/2023 16 - Unknown Comments: Got sick right away LISINOPRIL 12/23/2007 3 - Cough PENICILLINS 04/17/2005 2 - Rash Date Reviewed: 02/24/2024 Reviewed by: Carmen Dixon MA - Fully Assessed Primary Visit Diagnosis:Type 2 diabetes mellitus without complication, without long-term current use of insulin (HCC) [E11.9] Other Visit Diagnosis:Mixed hyperlipidemia [E78.2] Order(s):LIPID PANEL, NONFASTING [SQLIPNF] Order #: [id number] FUTURE HEMOGLOBIN A1C [PJAIV5O] Order #: [id number] FUTURE Prescriptions as of 08/21/2024 - isosorbide mononitrate (MONOKET) 20 mg tablet Take 1 tablet by mouth two times a day. - telmisartan (MICARDIS) 80 mg tablet Take 1 tablet by mouth once daily. - metoprolol succinate ER (TOPROL XL) 25 mg 24 hr tablet Take 1.5 tablets by mouth once daily. Per [facility] - atorvastatin (LIPITOR) 80 mg tablet Take 1 tablet by mouth once daily. - clopidogrel (PLAVIX) 75 mg tablet Take 1 tablet by mouth once daily. - dilTIAZem XR (DILACOR XR) 240 mg 24 hr capsule Take 1 capsule by mouth once daily. - finasteride (PROSCAR) 5 mg tablet Take 1 tablet by mouth once daily. - fluticasone (FLONASE) 50 mcg/actuation nasal spray Use 2 Sprays in each nostril once daily. Rinse mouth after use. - hydroCHLOROthiazide 25 mg tablet Take 1 tablet by mouth once daily. - metFORMIN ER (GLUCOPHAGE XR) 500 mg 24 hr tablet Take 1 tablet by mouth daily with breakfast. - nitroglycerin sublingual (NITROQUICK) 0.4 mg SL tablet Dissolve under the tongue. UNDER TONGUE X 3 DOSES IF STILL HAVE CHEST PAIN SEEK EMERGENCY HELP - tamsulosin (FLOMAX) 0.4 mg Take 1 capsule by mouth once daily. - loratadine (CLARITIN) 10 mg tablet Take 1 tablet by mouth once daily. - sodium chloride (SALINE MIST) 0.65 % nasal spray Use 1 Stella in the nose as needed for cold/allergy symptoms. - azelastine (ASTELIN) 0.1% nasal spray SPRAY 1 SPRAY INTO EACH NOSTRIL TWICE A DAY - cyclobenzaprine (FLEXERIL) 10 mg tablet Take 0.5-1 tablets by mouth three times daily as needed for muscle spasm. - blood sugar diagnostic (FREESTYLE LITE STRIPS) test strip Test blood sugar(s) one times daily. Dx: 250.00. Insulin: No - lancets (FREESTYLE LANCETS) 28 gauge misc Test blood sugar(s) 1 times daily. Dx: 250.00. Insulin: No - THERAPEUTIC MULTIVITAMIN TAB Take one(1) tablet daily. Problem List As Of Date 08/21/2024 Noted Resolved Essential hypertension, benign [I10] 10/16/2005 Mixed hyperlipidemia [E78.2] 10/16/2005 Elevated prostate specific antigen (PSA) [R97.2*04/27/2007 Unspecified arthropathy, lower leg [M17.10] 01/25/2009 Kidney stone [N20.0] 02/02/2012 Complex renal cyst [N28.1] 08/31/2012 Prostatic intraepithelial neoplasia [N42.31] 08/31/2012 Neoplasm of uncertain behavior of skin [D48.5] 11/01/2014 Urinary retention [R33.9] 12/03/2014 Coronary atherosclerosis due to lipid rich plaq*07/08/2015 Diabetic eye exam (HCC) [Z01.00, E11.9] 07/29/2015 Diverticulosis of large intestine [K57.30] 08/19/2015 Hx of colonic polyp [Z86.0100] 08/19/2015 Obstructive sleep apnea syndrome [G47.33] 11/06/2015 Well adult exam [Z00.00] 09/18/2016 01/12/2020 Type 2 diabetes mellitus without complication, *09/18/2016 Benign prostatic hyperplasia [N40.0] 09/18/2016 Obesity (BMI 35.0-39.9 without comorbidity) [E6*11/17/2016 Acute right-sided low back pain with right-side*03/22/2017 Lumbar radiculopathy [M54.16] 03/22/2017 Medicare annual wellness visit, subsequent [Z00*09/21/2017 History of heart artery stent [Z95.5] 11/17/2017 Screening for colon cancer [Z12.11] 07/26/2018 Eczema [L30.9] 09/22/2018 Advance directive discussed with patient [Z71.8*02/11/[address] [Z78.9] 08/19/2022 Obesity, Class I, BMI 30-34.9 [E66.811] 02/24/2024 Encounter Status:Closed by MARTIR GIVENS on 08/21/24 CNPN Observed: 08/07/2024 12:00 AM Status: COMPLETED Source: [facility] NADIA IBRAHIM ([id number]) 1940 M NFR Date Time Provider Department 08/07/24 JADA CARUSO [facility] During your visit today, we recorded the following information about you: Leona Angel, RN 08/07/2024 9:58 AM Signed See 07/24/24 phone encounter. Isosorbide Mononitrate is on back order so Jana Timmons is now out of both the 10 mg and 20 mg tablets. Called and was able to find that [facility] in [place] has plenty of the 20 mg tablets. Called pt to see if he is okay with picking them up at [facility] in [place]. Pt is fine with that. He states he is now out of the medication so if it could be sent to [facility] today, he would appreciate it. Pt's next appt is 08/25/24. Please call pt back once med has been sent. Thank you. Jesus Altman PA-C 08/07/2024 10:02 AM Signed The following approved medication requests have been transmitted electronically. Requested Prescriptions Signed Prescriptions Disp Refills isosorbide mononitrate (MONOKET) 20 mg tablet 180 tablet 1 Sig: Take 1 tablet by mouth two times a day. Authorizing Provider: JESUS ALTMAN PA-C Rhoads, Barbara, RN 08/07/2024 10:06 AM Signed Called and notified pt that script has been sent to [place] [facility] for 90 days with 1 refill. He will have to let us know if there is a problem in 3 months with getting the refill as med appears to be on back order. Allergies As of Date: 08/07/2024 Noted Allergy Reaction CLINDAMYCIN 09/21/2017 7 - Swelling Comments: Throat swelling, heartburn INFLUENZA VIRUS VACCINES 05/28/2023 16 - Unknown Comments: Got sick right away LISINOPRIL 12/23/2007 3 - Cough PENICILLINS 04/17/2005 2 - Rash Date Reviewed: 02/24/2024 Reviewed by: Carmen Dixon MA - Fully Assessed Reason for Visit: Medication Problem [65] Visit Diagnosis:Essential hypertension, benign [I10] Order(s):isosorbide mononitrate (MONOKET) 20 mg tabletTake 1 tablet by mouth two times a day.Disp: 180 tabletRfl: 1 Prescriptions as of 08/07/2024 - isosorbide mononitrate (MONOKET) 20 mg tablet Take 1 tablet by mouth two times a day. - telmisartan (MICARDIS) 80 mg tablet Take 1 tablet by mouth once daily. - metoprolol succinate ER (TOPROL XL) 25 mg 24 hr tablet Take 1.5 tablets by mouth once daily. Per [facility] - atorvastatin (LIPITOR) 80 mg tablet Take 1 tablet by mouth once daily. - clopidogrel (PLAVIX) 75 mg tablet Take 1 tablet by mouth once daily. - dilTIAZem XR (DILACOR XR) 240 mg 24 hr capsule Take 1 capsule by mouth once daily. - finasteride (PROSCAR) 5 mg tablet Take 1 tablet by mouth once daily. - fluticasone (FLONASE) 50 mcg/actuation nasal spray Use 2 Sprays in each nostril once daily. Rinse mouth after use. - hydroCHLOROthiazide 25 mg tablet Take 1 tablet by mouth once daily. - metFORMIN ER (GLUCOPHAGE XR) 500 mg 24 hr tablet Take 1 tablet by mouth daily with breakfast. - nitroglycerin sublingual (NITROQUICK) 0.4 mg SL tablet Dissolve under the tongue. UNDER TONGUE X 3 DOSES IF STILL HAVE CHEST PAIN SEEK EMERGENCY HELP - tamsulosin (FLOMAX) 0.4 mg Take 1 capsule by mouth once daily. - loratadine (CLARITIN) 10 mg tablet Take 1 tablet by mouth once daily. - sodium chloride (SALINE MIST) 0.65 % nasal spray Use 1 Stella in the nose as needed for cold/allergy symptoms. - azelastine (ASTELIN) 0.1% nasal spray SPRAY 1 SPRAY INTO EACH NOSTRIL TWICE A DAY - cyclobenzaprine (FLEXERIL) 10 mg tablet Take 0.5-1 tablets by mouth three times daily as needed for muscle spasm. - blood sugar diagnostic (FREESTYLE LITE STRIPS) test strip Test blood sugar(s) one times daily. Dx: 250.00. Insulin: No - lancets (FREESTYLE LANCETS) 28 gauge misc Test blood sugar(s) 1 times daily. Dx: 250.00. Insulin: No - THERAPEUTIC MULTIVITAMIN TAB Take one(1) tablet daily. Problem List As Of Date 08/07/2024 Noted Resolved Essential hypertension, benign [I10] 10/16/2005 Mixed hyperlipidemia [E78.2] 10/16/2005 Elevated prostate specific antigen (PSA) [R97.2*04/27/2007 Unspecified arthropathy, lower leg [M17.10] 01/25/2009 Kidney stone [N20.0] 02/02/2012 Complex renal cyst [N28.1] 08/31/2012 Prostatic intraepithelial neoplasia [N42.31] 08/31/2012 Neoplasm of uncertain behavior of skin [D48.5] 11/01/2014 Urinary retention [R33.9] 12/03/2014 Coronary atherosclerosis due to lipid rich plaq*07/08/2015 Diabetic eye exam (HCC) [Z01.00, E11.9] 07/29/2015 Diverticulosis of large intestine [K57.30] 08/19/2015 Hx of colonic polyp [Z86.0100] 08/19/2015 Obstructive sleep apnea syndrome [G47.33] 11/06/2015 Well adult exam [Z00.00] 09/18/2016 01/12/2020 Type 2 diabetes mellitus without complication, *09/18/2016 Benign prostatic hyperplasia [N40.0] 09/18/2016 Obesity (BMI 35.0-39.9 without comorbidity) [E6*11/17/2016 Acute right-sided low back pain with right-side*03/22/2017 Lumbar radiculopathy [M54.16] 03/22/2017 Medicare annual wellness visit, subsequent [Z00*09/21/2017 History of heart artery stent [Z95.5] 11/17/2017 Screening for colon cancer [Z12.11] 07/26/2018 Eczema [L30.9] 09/22/2018 Advance directive discussed with patient [Z71.8*02/11/[address] [Z78.9] 08/19/2022 Obesity, Class I, BMI 30-34.9 [E66.811] 02/24/2024 Prescriptions ordered this encounter Disp Refills Start End ISOSORBIDE MONONITRATE 20 MG TABLET 180 * 1 08/07/2024 Route: ORAL Sig: Take 1 tablet by mouth two times a day. Medications Discontinued During This Encounter Prescriptions - isosorbide mononitrate (MONOKET) 20 mg tablet (Discontinued) Take 1 tablet by mouth two times a day. - Isosorbide Mononitrate 10 mg tablet (Discontinued) Take 2 tablets by mouth two times a day. Encounter Status:Closed by JESUS KLINE on 08/07/24 WIN Observed: 07/24/2024 12:00 AM Status: COMPLETED Source: [facility] NADIA IBRAHIM ([id number]) 1940 M NFR Date Time Provider Department 07/24/24 JADA CARUSO [facility] During your visit today, we recorded the following information about you: Cassie aCrter RN 07/24/2024 1:21 PM Signed Patient reports he is out of isosorbide mononitrate 20 mg as of yesterday. States he spoke with his pharmacy and they state they cannot get the medication currently. Pt states he spoke with other local pharmacies ([facility], [facility]) and they are unable to get the medication as well. Patient asking if provider will send an alternative to [facility]. Please call patient with an update at this number: [phone] CATRACHO Lugo Rayanne, PA-C 07/24/2024 1:29 PM Signed There's not really a specific alternative to this medication. How soon can the pharmacy get the script for him. He could also call cardiology to see what their thoughts are. Isosorbide, although prescribed by PCP team currently, we usually have cardiology manage this medication. KARI Love Sherill A, LPN 07/24/2024 2:48 PM Signed Pt notified of Poonam's message. States right after he called office [facility] called and told him they have lots of the 10 mg pills in stock. Pt is ok with doing this if [facility] can send this in. Please let pt know. NAVNEET Robertson Rayanne, PA-C 07/24/2024 2:54 PM Signed The following approved medication requests have been transmitted electronically. Requested Prescriptions Signed Prescriptions Disp Refills Isosorbide Mononitrate 10 mg tablet 120 tablet 0 Sig: Take 2 tablets by mouth two times a day. Authorizing Provider: JESUS ALTMAN PA-C Hambel, Sherill A, LPN 07/24/2024 3:03 PM Signed Pt notified of same and verbalizes understanding of medication instructions. Tamra Marr LPN Allergies As of Date: 07/24/2024 Noted Allergy Reaction CLINDAMYCIN 09/21/2017 7 - Swelling Comments: Throat swelling, heartburn INFLUENZA VIRUS VACCINES 05/28/2023 16 - Unknown Comments: Got sick right away LISINOPRIL 12/23/2007 3 - Cough PENICILLINS 04/17/2005 2 - Rash Date Reviewed: 02/24/2024 Reviewed by: Carmen Dixon MA - Fully Assessed Reason for Visit: Medication Request [138] Order(s):Isosorbide Mononitrate 10 mg tabletTake 2 tablets by mouth two times a day.Disp: 120 tabletRfl: 0 Prescriptions as of 07/27/2024 - Isosorbide Mononitrate 10 mg tablet Take 2 tablets by mouth two times a day. - telmisartan (MICARDIS) 80 mg tablet Take 1 tablet by mouth once daily. - metoprolol succinate ER (TOPROL XL) 25 mg 24 hr tablet Take 1.5 tablets by mouth once daily. Per [facility] - atorvastatin (LIPITOR) 80 mg tablet Take 1 tablet by mouth once daily. - clopidogrel (PLAVIX) 75 mg tablet Take 1 tablet by mouth once daily. - dilTIAZem XR (DILACOR XR) 240 mg 24 hr capsule Take 1 capsule by mouth once daily. - finasteride (PROSCAR) 5 mg tablet Take 1 tablet by mouth once daily. - fluticasone (FLONASE) 50 mcg/actuation nasal spray Use 2 Sprays in each nostril once daily. Rinse mouth after use. - hydroCHLOROthiazide 25 mg tablet Take 1 tablet by mouth once daily. - isosorbide mononitrate (MONOKET) 20 mg tablet Take 1 tablet by mouth two times a day. - metFORMIN ER (GLUCOPHAGE XR) 500 mg 24 hr tablet Take 1 tablet by mouth daily with breakfast. - nitroglycerin sublingual (NITROQUICK) 0.4 mg SL tablet Dissolve under the tongue. UNDER TONGUE X 3 DOSES IF STILL HAVE CHEST PAIN SEEK EMERGENCY HELP - tamsulosin (FLOMAX) 0.4 mg Take 1 capsule by mouth once daily. - loratadine (CLARITIN) 10 mg tablet Take 1 tablet by mouth once daily. - sodium chloride (SALINE MIST) 0.65 % nasal spray Use 1 Stella in the nose as needed for cold/allergy symptoms. - azelastine (ASTELIN) 0.1% nasal spray SPRAY 1 SPRAY INTO EACH NOSTRIL TWICE A DAY - cyclobenzaprine (FLEXERIL) 10 mg tablet Take 0.5-1 tablets by mouth three times daily as needed for muscle spasm. - blood sugar diagnostic (FREESTYLE LITE STRIPS) test strip Test blood sugar(s) one times daily. Dx: 250.00. Insulin: No - lancets (FREESTYLE LANCETS) 28 gauge misc Test blood sugar(s) 1 times daily. Dx: 250.00. Insulin: No - THERAPEUTIC MULTIVITAMIN TAB Take one(1) tablet daily. 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] 08/31/2012 Neoplasm of uncertain behavior of skin [D48.5] 11/01/2014 Urinary retention [R33.9] 12/03/2014 Coronary atherosclerosis due to lipid rich plaq*07/08/2015 Diabetic eye exam (HCC) [Z01.00, E11.9] 07/29/2015 Diverticulosis of large intestine [K57.30] 08/19/2015 Hx of colonic polyp [Z86.0100] 08/19/2015 Obstructive sleep apnea syndrome [G47.33] 11/06/2015 Well adult exam [Z00.00] 09/18/2016 01/12/2020 Type 2 diabetes mellitus without complication, *09/18/2016 Benign prostatic hyperplasia [N40.0] 09/18/2016 Obesity (BMI 35.0-39.9 without comorbidity) [E6*11/17/2016 Acute right-sided low back pain with right-side*03/22/2017 Lumbar radiculopathy [M54.16] 03/22/2017 Medicare annual wellness visit, subsequent [Z00*09/21/2017 History of heart artery stent [Z95.5] 11/17/2017 Screening for colon cancer [Z12.11] 07/26/2018 Eczema [L30.9] 09/22/2018 Advance directive discussed with patient [Z71.8*02/11/[address] [Z78.9] 08/19/2022 Obesity, Class I, BMI 30-34.9 [E66.811] 02/24/2024 Prescriptions ordered this encounter Disp Refills Start End ISOSORBIDE MONONITRATE 10 MG TABLET 120 * 0 07/24/2024 Route: ORAL Sig: Take 2 tablets by mouth two times a day. Encounter Status:Closed by TAMRA MARR on 07/24/24 PROGRESS Observed: 05/11/2024 1:59 PM Status: COMPLETED Source: [facility] HNO ID: [id number] Author: TAMRA MARR LPN Service: ? Author Type: LICENSED NURSE Type: Progress Notes Filed: 05/11/2024 13:59 Note Text: Scan on 05/11/2024 1:27 PM by ProviderTiffanie PALakeishaC: Consultation - Cardiology PROGRESS Observed: 04/26/2024 2:46 PM Status: COMPLETED Source: [facility] HNO ID: [id number] Author: TAMRA MARR LPN Service: ? Author Type: LICENSED NURSE Type: Progress Notes Filed: 04/26/2024 14:46 Note Text: Scan on 04/26/2024 2:15 PM by ProviderTiffanie PA-C: Consultation - Ophthalmology ALLERGIES DATE TYPE / CODE NAME / CODE REACTION SEVERITY SOURCE 05/28/2023 Drug Class/617177027 (SNOMED CT) INFLUENZA VIRUS VACCINES UNKNOWN [facility] 09/21/2017 DRUG INGREDI/1491782 03(SNOMED CT) CLINDAMYCIN SWELLING [facility] 12/23/2007 DRUG INGREDI/6135478 03(SNOMED CT) LISINOPRIL COUGH [facility] 04/17/2005 Drug Class/[id number] (SNOMED CT) PENICILLINS RASH [facility] ENCOUNTERS ADMIT/DISCHARGE ACCOUNT NUMBER ADMITTING ENCOUNTER CLASS LOC ATION SOURCE 02/22/2025/ 5 [id number] [facility] 02/12/2025/ 5 [id number] [facility] 08/25/2024/ 5 [id number] [facility] 08/21/2024/ 5 [id number] [facility] ENCOUNTER GUARANTOR PAYER SUBSCRIBER SOURCE 02/22/2025 Primary Insuranc e:MEDICARE A AND BPolicy Number: [id number] Date:9952-59-03Jloy Name:Khurram Elliott YANDELOB: [id number] [facility] [address] [place] [address] [facility] 02/22/2025 Secondary Insura nce:MMO MEDICARE SUPPLEMENTPolicy Number: [id number] Date:1535-72-44Fngt Name:Nathaly ZUNIGA Earl HUMPHRIESOB: [id number] [facility] [address] [place] [id number] [place] [address] 02/12/2025 Primary Insuranc e:MEDICARE A AND BPolicy Number: [id number] Date:1902-46-55Ghfn Name:Khurram ZUNIGA Earl HUMPHRIESOB: [id number] [id number] [place] [address] 02/12/2025 Secondary Insura nce:MMO MEDICARE SUPPLEMENTPolicy Number: [id number] Date:4630-90-38Cqgn Name:Nathaly HUMPHRIESOB: [id number] [address] [address] [facility] 08/25/2024 Primary Insuranc e:MEDICARE A AND BPolicy Number: [id number] Date:0411-84-47Yhfm Name:Khurram HUMPHRIESOB: [id number] [facility] [address] [place] [address] [facility] 08/25/2024 Secondary Insura nce:MMO MEDICARE SUPPLEMENTPolicy Number: [id number] Date:9939-63-85Diwo Name:Nathaly HUMPHRIESOB: [id number] [facility] [address] [place] [address] [facility] 08/21/2024 Primary Insuranc e:MEDICARE A AND BPolicy Number: [id number] Date:0741-90-03Xqlq Name:Khurram IZQUIERDO: [id number] [address] [address] [facility] 08/21/2024 Secondary Insura nce:[facility] MEDICARE SUPPLEMENTPolicy Number: [id number] Date:2648-34-10Ktpx Name:Nathaly IZQUIERDO: [id number] [address] [address] [facility]
[2025-03-26 18:31] LABS: PSA,Total - Annual Screen 4.69 ng/mL (0.02-4.00)
== END | disposition home or self-care (01) ==
LOC: LAB 15:51
PROVIDERS: PCP Family Medicine; Referring Provider Urology; Visit Provider Urology
DX: Z12.5 Encounter for screening for malignant neoplasm of prostate (principal)
CPT/HCPCS: 36415; 84153; G0103